=== PATIENT | male | born 1950 | race Caucasian/White ===

== ENCOUNTER 2020-12-27 06:06 | Outpatient (REF) | payer MEDICARE, OTHER, SELFPAY ==
[2020-12-27 11:33] LABS: Hematocrit 41.3 % (42-52); Hemoglobin 12.6 g/dl (14.0-18.0); Mean Corpuscular HGB Conc 30.5 g/dl (31.0-36.0); Mean Corpuscular Hemoglobin 26.9 pg (27.0-33.0); Mean Corpuscular Volume 88.1 fL (80-98); Platelet Count 332 X10*3/uL (160-400); Red Blood Count 4.69 X10*6/uL (4.60-5.80); White Blood Count 6.8 X10*3/uL (4.8-10.8)
[2020-12-27 12:17] LABS: Alanine Aminotransferase 29 U/L (0-40); Albumin Level 4.4 g/dL (3.5-5.0); Alkaline Phosphatase 90 U/L (39-117); Anion Gap 11 (12-20); Aspartate Amino Transferase 35 U/L (5-37); Bilirubin Total 0.6 mg/dL (0.0-1.0); Blood Urea Nitrogen 23 mg/dL (9-16); Calcium 9.4 mg/dL (8.4-10.2); Carbon Dioxide 27 mmol/L (22-29); Chloride 106 mmol/L (96-108); Cholesterol 148 mg/dL; Estimated Glomerular Filt Rate > 60; Glucose Fasting 99 mg/dL (60-99); HDL Cholesterol 62 mg/dL; Iron 36 mcg/dL (45-160); LDL Cholesterol Calculated 68 mg/dl; Percent Iron Saturation 8 % (15-50); Potassium 4.8 mmol/L (3.3-5.1); Sodium 139 mmol/L (135-145); Total Iron Binding Capacity 478 mcg/dL (228-428); Total Protein 7.4 g/dL (6.5-8.0); Triglycerides 93 mg/dL; Unsaturated Iron Binding 442 ug/dL
== END 2020-12-27 06:07 | disposition home or self-care (01) ==
LOC: HO.HMGCLDS 06:06
PROVIDERS: PCP Internal Medicine; Visit Provider Internal Medicine
DX: E78.5 Hyperlipidemia, unspecified (principal); I10 Essential (primary) hypertension; K22.70 Barrett's esophagus without dysplasia
CPT/HCPCS: 36415; 80053; 80061; 83540; 85027

== ENCOUNTER 2021-01-04 11:37 | Outpatient (REF) | payer MEDICARE, OTHER, SELFPAY ==
[2021-01-04 13:49] LABS: Glucose Urine UA NEG (NEG); Leukocyte Esterase Urine NEG (NEG); Nitrite Urine NEG (NEG); Specific Gravity - Urine 1.025 (1.005-1.025); Urine Blood NEG (NEG); Urine Ketones NEG (NEG); Urine Protein NEG (NEG-TRACE)
[2021-01-04 13:55] LABS: Appearance Urine HAZY; Color Urine YELLOW
[2021-01-04 14:08] LABS: Amorphous Sediment Urine 2+ /LPF; Bacteria Urine 1+ /LPF; RBC Urine 0-2 /HPF (0); WBC Urine 0 /HPF (0-4)
[2021-01-04 14:44] LABS: Prostate Specific Antigen Scr 1.54 ng/mL (<0.05-4.0)
== END 2021-01-04 11:38 | disposition home or self-care (01) ==
LOC: HO.HMGCLDS 11:37
PROVIDERS: PCP Internal Medicine; Visit Provider Internal Medicine
DX: Z12.5 Encounter for screening for malignant neoplasm of prostate (principal); N40.0 Benign prostatic hyperplasia without lower urinary tract symptoms
CPT/HCPCS: 36415; 81001; 84153

== ENCOUNTER 2021-09-29 06:41 | Outpatient (REF) | payer MEDICARE, OTHER, SELFPAY ==
[2021-09-29 11:29] LABS: Hematocrit 39.8 % (42.0-52.0); Hemoglobin 12.3 g/dl (14.0-18.0); Mean Corpuscular HGB Conc 30.9 g/dl (31.0-36.0); Mean Corpuscular Hemoglobin 27.3 pg (27.0-33.0); Mean Corpuscular Volume 88.4 fL (80.0-98.0); Mean Platelet Volume 10.3 fL (9.4-12.4); Platelet Count 297 X10*3/uL (160-400); Red Cell Distribution Width 18.1 % (11.0-16.0); White Blood Count 6.1 X10*3/uL (4.8-10.8)
[2021-09-29 12:26] LABS: Alanine Aminotransferase 32 U/L (0-40); Albumin Level 4.4 g/dL (3.5-5.0); Alkaline Phosphatase 74 U/L (39-117); Anion Gap 13 (12-20); Aspartate Amino Transferase 32 U/L (5-37); Blood Urea Nitrogen 29 mg/dL (9-16); Calcium 9.5 mg/dL (8.4-10.2); Carbon Dioxide 26 mmol/L (22-29); Chloride 106 mmol/L (96-108); Cholesterol 144 mg/dL; Estimated Glomerular Filt Rate > 60; Glucose Fasting 101 mg/dL (60-99); HDL Cholesterol 59 mg/dL; Iron 59 mcg/dL (45-160); LDL Cholesterol Calculated 72 mg/dl; Percent Iron Saturation 13 % (15-50); Potassium 4.6 mmol/L (3.3-5.1); Sodium 140 mmol/L (135-145); Total Iron Binding Capacity 466 mcg/dL (228-428); Total Protein 7.4 g/dL (6.5-8.0); Triglycerides 67 mg/dL; Unsaturated Iron Binding 407 ug/dL
== END 2021-09-29 06:42 | disposition home or self-care (01) ==
LOC: HO.HMGCLDS 06:41
PROVIDERS: Visit Provider Internal Medicine
DX: E61.1 Iron deficiency (principal); E78.5 Hyperlipidemia, unspecified; I10 Essential (primary) hypertension; K22.70 Barrett's esophagus without dysplasia
CPT/HCPCS: 36415; 80053; 80061; 83540; 85027

== ENCOUNTER 2022-03-29 06:20 | Outpatient (REF) | payer MEDICARE, OTHER, SELFPAY ==
[2022-03-29 11:25] LABS: MANUAL DIFF FLAG NO
[2022-03-29 11:28] LABS: Basophils Absolute Auto 0.1 X10*3/uL (0.0-0.2); Eosinophils Absolute Auto 0.2 X10*3/uL (0.0-0.4); Eosinophils Percent Auto 3.2 % (0-4); Hematocrit 41.7 % (42.0-52.0); Hemoglobin 13.1 g/dl (14.0-18.0); Imm Gran Abs Auto 0.01 X10*3/uL (0.00-0.03); Imm Gran Pct Auto 0.2 % (0.0-0.4); Lymphocytes Absolute Auto 1.4 X10*3/uL (1.2-4.9); Lymphocytes Percent Auto 27.6 % (20-40); Mean Corpuscular HGB Conc 31.4 g/dl (31.0-36.0); Mean Corpuscular Hemoglobin 27.8 pg (27.0-33.0); Mean Corpuscular Volume 88.5 fL (80.0-98.0); Monocytes Absolute Auto 0.6 X10*3/uL (0.1-1.2); Monocytes Percent Auto 11.7 % (2-11); Neutrophils Absolute Auto 2.8 x10*3/uL (2.0-8.3); Neutrophils Percent Auto 56.3 % (45-73); Platelet Count 294 X10*3/uL (160-400); Red Blood Count 4.71 X10*6/uL (4.60-5.80); Red Cell Distribution Width 17.6 % (11.0-16.0)
[2022-03-29 11:59] LABS: Alanine Aminotransferase 28 U/L (0-40); Albumin Level 4.4 g/dL (3.5-5.0); Alkaline Phosphatase 80 U/L (39-117); Anion Gap 12 (12-20); Aspartate Amino Transferase 30 U/L (5-37); Blood Urea Nitrogen 28 mg/dL (9-16); Calcium 9.3 mg/dL (8.4-10.2); Carbon Dioxide 26 mmol/L (22-29); Chloride 106 mmol/L (96-108); Estimated Glomerular Filt Rate > 60; Glucose Fasting 96 mg/dL (60-99); Iron 57 mcg/dL (45-160); Percent Iron Saturation 13 % (15-50); Potassium 4.2 mmol/L (3.3-5.1); Sodium 140 mmol/L (135-145); Total Iron Binding Capacity 449 mcg/dL (228-428); Total Protein 7.2 g/dL (6.5-8.0); Unsaturated Iron Binding 392 ug/dL
[2022-03-29 12:08] LABS: Prostate Specific Antigen Scr 2.14 ng/mL (<0.05-4.0)
[2022-03-29 13:08] LABS: Folate 15.7 ng/mL (> or = 4.0); Vitamin B12 631 pg/mL (200-900)
== END 2022-03-29 06:21 | disposition home or self-care (01) ==
LOC: HO.HMGCLDS 06:20
PROVIDERS: PCP Internal Medicine; Visit Provider Internal Medicine
DX: Z12.5 Encounter for screening for malignant neoplasm of prostate (principal); E78.5 Hyperlipidemia, unspecified; I10 Essential (primary) hypertension; E61.1 Iron deficiency
CPT/HCPCS: 36415; 80053; 82607; 82746; 83540; 84153; 85025

== ENCOUNTER 2022-07-14 14:22 | Outpatient (REF) | payer MEDICARE, OTHER, SELFPAY ==
[2022-07-14 16:28] LABS: MANUAL DIFF FLAG NO
[2022-07-14 16:32] LABS: Basophils Absolute Auto 0.1 X10*3/uL (0.0-0.2); Basophils Percent Auto 0.8 % (0-2); Eosinophils Absolute Auto 0.1 X10*3/uL (0.0-0.4); Eosinophils Percent Auto 1.2 % (0-4); Hematocrit 26.5 % (42.0-52.0); Hemoglobin 8.1 g/dl (14.0-18.0); Imm Gran Abs Auto 0.02 X10*3/uL (0.00-0.03); Imm Gran Pct Auto 0.3 % (0.0-0.4); Lymphocytes Absolute Auto 1.5 X10*3/uL (1.2-4.9); Lymphocytes Percent Auto 20.3 % (20-40); Mean Corpuscular HGB Conc 30.6 g/dl (31.0-36.0); Mean Corpuscular Hemoglobin 27.5 pg (27.0-33.0); Mean Corpuscular Volume 89.8 fL (80.0-98.0); Mean Platelet Volume 10.2 fL (9.4-12.4); Monocytes Absolute Auto 0.8 X10*3/uL (0.1-1.2); Monocytes Percent Auto 10.8 % (2-11); Neutrophils Percent Auto 66.6 % (45-73); Platelet Count 498 X10*3/uL (160-400); Red Blood Count 2.95 X10*6/uL (4.60-5.80); Red Cell Distribution Width 14.9 % (11.0-16.0); White Blood Count 7.5 X10*3/uL (4.8-10.8)
[2022-07-14 16:47] LABS: Iron 10 mcg/dL (45-160); Percent Iron Saturation 2 % (15-50); Total Iron Binding Capacity 409 mcg/dL (228-428); Unsaturated Iron Binding 399 ug/dL
== END 2022-07-14 14:23 | disposition home or self-care (01) ==
LOC: HO.HMGCLDS 14:22
PROVIDERS: PCP Internal Medicine; Visit Provider Internal Medicine
DX: K22.70 Barrett's esophagus without dysplasia (principal); E61.1 Iron deficiency
CPT/HCPCS: 36415; 83540; 85025

== ENCOUNTER 2022-08-02 08:28 | Outpatient (REF) | payer MEDICARE, OTHER, SELFPAY ==
[2022-08-02 12:00] LABS: Hematocrit 28.9 % (42.0-52.0); Hemoglobin 8.5 g/dl (14.0-18.0); Mean Corpuscular HGB Conc 29.4 g/dl (31.0-36.0); Mean Corpuscular Hemoglobin 25.4 pg (27.0-33.0); Mean Corpuscular Volume 86.5 fL (80.0-98.0); Mean Platelet Volume 10.2 fL (9.4-12.4); Platelet Count 381 X10*3/uL (160-400); Red Blood Count 3.34 X10*6/uL (4.60-5.80); Red Cell Distribution Width 15.9 % (11.0-16.0); White Blood Count 5.7 X10*3/uL (4.8-10.8)
[2022-08-02 12:03] LABS: RET ABN SCTR 1
[2022-08-02 12:04] LABS: Immature Retic Fraction 17.8 % (2.3-13.4); Reticulocytes Absolute 0.099 X10*6/uL (0.026-0.095)
[2022-08-02 12:05] LABS: Reticulocyte Percent 3.1 % (0.5-1.8)
[2022-08-02 12:36] LABS: Iron 103 mcg/dL (45-160); Percent Iron Saturation 24 % (15-50); Total Iron Binding Capacity 423 mcg/dL (228-428); Unsaturated Iron Binding 320 ug/dL
[2022-08-02 12:48] LABS: Atypical Lymph Absolute Manual 0.1 x10*3/uL; Atypical Lymphs Percent Manual 1 % (0-6); Basophils Abs Manual 0.1 X10*3/uL (0.0-0.2); Basophils Percent Manual 2 % (0-2); Eosinophils Absolute Manual 0.1 X10*3/uL (0.0-0.4); Eosinophils Percent Manual 2 % (0-4); Lymphocytes Percent Manual 18 % (20-40); Monocytes Absolute Manual 0.5 X10*3/uL (0.1-1.2); Monocytes Percent Manual 9 % (2-11); Neutrophils Percent Manual 68 % (45-73)
[2022-08-02 12:49] LABS: Band Neutrophils Percent 0 % (3-5); Neutrophils Absolute Manual 3.9 X10*3/uL (2.0-8.3)
[2022-08-02 12:51] LABS: Burr Cells 1+ (0-2) /OIF; Hypochromasia 1+ (5-14) /OIF; Platelet Estimate NORMAL (NORMAL); Platelet Morphology Comment NORMAL; RBC Morphology NOTED; Schistocytes 1+ (0-2) /OIF
[2022-08-02 12:52] LABS: Polychromasia 1+ (0-2) /OIF
[2022-08-02 12:53] LABS: Macrocytosis 1+ (5-14) /OIF
== END 2022-08-02 08:29 | disposition home or self-care (01) ==
LOC: HO.HMGCLDS 08:28
PROVIDERS: PCP Internal Medicine; Visit Provider Internal Medicine
DX: D64.9 Anemia, unspecified (principal)
CPT/HCPCS: 36415; 83540; 85007; 85025; 85027; 85045

== ENCOUNTER 2022-09-05 06:15 | Outpatient (REF) | payer MEDICARE, OTHER, SELFPAY ==
[2022-09-05 11:38] LABS: Baso%MD 1.1 %; Eos%MD 3.5 %; Hematocrit 37.7 % (42.0-52.0); IG%MD 0.2 %; Lymph%MD 25.1 %; Mean Corpuscular HGB Conc 29.2 g/dl (31.0-36.0); Mean Corpuscular Hemoglobin 24.2 pg (27.0-33.0); Mean Corpuscular Volume 82.9 fL (80.0-98.0); Mean Platelet Volume 9.9 fL (9.4-12.4); Mono%MD 11.7 %; Neut%MD 58.4 %; Platelet Count 367 X10*3/uL (160-400); Red Blood Count 4.55 X10*6/uL (4.60-5.80); White Blood Count 5.4 X10*3/uL (4.8-10.8)
[2022-09-05 11:57] LABS: Iron 20 mcg/dL (45-160); Percent Iron Saturation 5 % (15-50); Total Iron Binding Capacity 425 mcg/dL (228-428); Unsaturated Iron Binding 405 ug/dL
[2022-09-05 12:31] LABS: Folate 15.4 ng/mL (> or = 4.0); Vitamin B12 757 pg/mL (200-900)
[2022-09-05 13:21] LABS: Band Neutrophils Percent 0 % (3-5); Eosinophils Absolute Manual 0.3 X10*3/uL (0.0-0.4); Eosinophils Percent Manual 6 % (0-4); Lymphocytes Absolute Manual 0.9 X10*3/uL (1.2-4.9); Lymphocytes Percent Manual 17 % (20-40); Monocytes Absolute Manual 0.6 X10*3/uL (0.1-1.2); Monocytes Percent Manual 12 % (2-11); Neutrophils Absolute Manual 3.5 X10*3/uL (2.0-8.3); Neutrophils Percent Manual 65 % (45-73)
[2022-09-05 13:26] LABS: Acanthocytes 1+ (0-2) /OIF; Hypochromasia 1+ (5-14) /OIF; Ovalocytes 1+ (5-14) /OIF; Platelet Estimate NORMAL (NORMAL); Platelet Morphology Comment NORMAL; RBC Morphology NOTED
[2022-09-08 23:09] LABS: Haptoglobin 166 mg/dL (43-212); IgA 204 mg/dL (70-320); IgG 1390 mg/dL (600-1540); IgM 128 mg/dL (50-300)
== END 2022-09-05 06:16 | disposition home or self-care (01) ==
LOC: HO.HMGCLDS 06:15
PROVIDERS: PCP Internal Medicine; Visit Provider Internal Medicine
DX: D64.9 Anemia, unspecified (principal); E61.1 Iron deficiency
CPT/HCPCS: 36415; 82607; 82746; 82784; 83010; 83540; 85007; 85027; 86334

== ENCOUNTER 2022-09-25 06:54 | Outpatient (REF) | payer MEDICARE, OTHER, SELFPAY ==
[2022-09-25 11:27] LABS: MANUAL DIFF FLAG NO
[2022-09-25 11:34] LABS: Basophils Absolute Auto 0.1 X10*3/uL (0.0-0.2); Eosinophils Absolute Auto 0.1 X10*3/uL (0.0-0.4); Eosinophils Percent Auto 2.4 % (0-4); Hematocrit 39.8 % (42.0-52.0); Hemoglobin 11.7 g/dl (14.0-18.0); Imm Gran Abs Auto 0.02 X10*3/uL (0.00-0.03); Imm Gran Pct Auto 0.3 % (0.0-0.4); Lymphocytes Absolute Auto 1.7 X10*3/uL (1.2-4.9); Lymphocytes Percent Auto 29.2 % (20-40); Mean Corpuscular HGB Conc 29.4 g/dl (31.0-36.0); Mean Corpuscular Hemoglobin 24.7 pg (27.0-33.0); Mean Platelet Volume 10.2 fL (9.4-12.4); Monocytes Absolute Auto 0.8 X10*3/uL (0.1-1.2); Monocytes Percent Auto 13.6 % (2-11); Neutrophils Absolute Auto 3.2 x10*3/uL (2.0-8.3); Neutrophils Percent Auto 53.5 % (45-73); Platelet Count 311 X10*3/uL (160-400); Red Blood Count 4.74 X10*6/uL (4.60-5.80); Red Cell Distribution Width 18.7 % (11.0-16.0)
[2022-09-25 11:58] LABS: Alanine Aminotransferase 30 U/L (0-40); Albumin Level 4.3 g/dL (3.5-5.0); Alkaline Phosphatase 81 U/L (39-117); Anion Gap 11 (12-20); Aspartate Amino Transferase 29 U/L (5-37); Bilirubin Total 0.9 mg/dL (0.0-1.0); Blood Urea Nitrogen 23 mg/dL (9-16); Calcium 9.3 mg/dL (8.4-10.2); Carbon Dioxide 28 mmol/L (22-29); Chloride 107 mmol/L (96-108); Cholesterol 137 mg/dL; Estimated Glomerular Filt Rate > 60; Glucose Fasting 93 mg/dL (60-99); HDL Cholesterol 65 mg/dL; Iron 23 mcg/dL (45-160); LDL Cholesterol Calculated 63 mg/dl; Percent Iron Saturation 6 % (15-50); Potassium 4.7 mmol/L (3.3-5.1); Sodium 141 mmol/L (135-145); Total Iron Binding Capacity 386 mcg/dL (228-428); Total Protein 6.9 g/dL (6.5-8.0); Triglycerides 45 mg/dL; Unsaturated Iron Binding 363 ug/dL
== END 2022-09-25 06:55 | disposition home or self-care (01) ==
LOC: HO.HMGCLDS 06:54
PROVIDERS: PCP Internal Medicine; Visit Provider Internal Medicine
DX: E61.1 Iron deficiency (principal); E78.5 Hyperlipidemia, unspecified; I10 Essential (primary) hypertension; D64.9 Anemia, unspecified
CPT/HCPCS: 36415; 80053; 80061; 83540; 85025

== ENCOUNTER → 2022-10-05 10:44 | Outpatient (REF) | payer MEDICARE, OTHER, SELFPAY ==
--- NOTE | 2022-10-05 10:46 | CA_ITS ---
Transthoracic Echocardiogram Amended Patient (Last, First, Middle): Elijah Gustafson C Gender: Male Date of : 1950 Age: 71 Procedure Date: 10/05/2022 Procedure Type: Transthoracic Echocardiogram Location: OP Height: 177.8 cm Weight: 77.11 kg BSA: 1.95 m2 Heart Rate: 45 bpm BP: 160 / 80 mmHg Auto Hauler: EZEQUIEL Referring MD: Michelle Matias MD Logistics Research Engineer: Maximo Nayak MD Symptoms: R00.1 - Bradycardia, unspecified Study Quality: Adequate ECG Rhythm: Bradycardia Conclusions: - 1. Normal LV systolic function with mild LVH with grade 1 diastolic dysfunction 2. Mildly dilated left atrium 3. Normal cardiac valvular Dopplers 4. Mildly dilated ascending aorta at 4.2 cm 5. No gross pericardial effusion Findings Left Ventricle Normal left ventricular size and systolic function. There is mildly increased left ventricular wall thickness. The visually estimated ejection fraction is between 60-65%. Spectral Doppler is indicative of an impaired relaxation filling pattern. E/E prime ratio is <8, consistent with normal filling pressures. Evidence suggests grade I (mild) diastolic dysfunction. Right Ventricle Normal right ventricular cavity size and systolic function. Atria The left atrium is mildly dilated. There is no evidence of interatrial shunt. The right atrium is normal in size. Aortic Valve The aortic valve structure and function is likely normal. There is no aortic valve stenosis. There is no aortic valve regurgitation. Mitral Valve There is mild anterior and posterior mitral leaflet thickening. There is mild mitral annular calcification. There is trace mitral valve regurgitation. There is no mitral valve stenosis. Pulmonic Valve The pulmonic valve was not well visualized. Tricuspid Valve Likely normal tricuspid valve structure and function. Tricuspid regurgitation envelope is inadequate for calculation of right ventricular systolic pressure. Normal right atrial pressure. Great Vessels The pulmonary artery was not well visualized. There is mild dilatation of the ascending aorta measuring 4.20 cm. Venous The inferior vena cava is normal in size and collapses greater than 50% with inspiration. Pericardium/Pleural There is no evidence of pericardial effusion. Prior Study Comparison No prior study available for comparison. Measurements 2D Linear Measurements IVSd: 1.20 0.6-0.9/0.6-1.0 cm LVIDd: 4.88 3.9-5.3/4.2-5.9 cm LVIDd Index: 2.50 2.4-3.2/2.2-3.1 cm/m2 LVIDs: 3.19 2.0-3.6 cm LVPWd: 1.13 0.7-1.1 cm LA Diam: 4.10 2.7-3.8/3.0-4.0 cm LAIDs Index: 2.10 1.5-2.3 cm/m2 LV Mass: 268.93 67-162/88-224 g LV Mass Index: 137.92 43-95/49-115 g/m2 LVOT Diam: 2.30 3.0+(-)1.3 cm 2D Volumes LA Vol: 36.40 2D Systolic Function EF 4C: 59.30 >55% EF 2C: 63.20 >55% EF BiP: 60.60 >55% Mitral Valve MV Pk E: 0.66 MV PK A: 0.74 MV Decel Time: 297.00 E/A: 0.90 E'Lateral: 8.59 E'Medial: 7.01 E/E' Med: 9.40 E/E' Lat: 7.70 PHT: 87.00 MVA PHT: 2.53 Decel [place]: 2.22 Aortic Valve AoV Pk Moses: 1.40 AoV Mn Moses: 0.99 AoV VTI: 0.31 AoV Pk Grad: 8.00 Aov Mn Grad: 4.00 SCOT Cont.VTI: 3.04 LVOT LVOT Pk Moses: 1.10 LVOT Mn Moses: 0.75 LVOT VTI: 0.23 LVOT Pk Grad: 5.00 LVOT Mn Grad: 3.00 LVOT Diam: 2.30 LVOT Area: 4.15 Diastolic Function MV Pk E: 0.66 MV Pk A: 0.74 E/A: 0.90 E'Medial: 7.01 E/E' Med: 9.40 E' Laterial: 8.59 E/E' Lat: 7.70 Right Ventricle TAPSE (mm): 24.30 TVS' Moses: 13.10 Tricuspid Valve RA Press: 3.00 Great Vessels Aorta Sinus of Valsalva: 3.90 2.0-3.5 cm Ao Asc: 4.20 2.1-3.4 cm Pulmonary Valve PV Pk Moses: 0.90 Peak PV Grad: 3.00 Updated in Other Vendor System with Status of Final Maximo Nayak MD electronically signed on 10/06/2022 8:28:23 AM with status of Final
== END ==
LOC: HO.CARD 10:44
PROVIDERS: PCP Internal Medicine; Visit Provider Internal Medicine
DX: R00.1 Bradycardia, unspecified (principal)
CPT/HCPCS: 93306

== ENCOUNTER → 2022-10-12 10:40 | Outpatient (REF) | payer MEDICARE, OTHER, SELFPAY ==
--- NOTE | 2022-10-12 10:48 | HM_ITS ---
Conclusion: 1. Patient was monitored for total period of 1 day and 22 hours 2. Baseline was normal sinus rhythm with average heart rate of 54 beats per minute 3. Frequent sinus bradycardia, 80% time heart rate below 60 beats per minute 4. No significant pauses noted 5. Total of 1061 PACs accounting for 0.7% of total beats account for occasional PACs. Fifty-nine short runs of SVT, longest lasting 10 beats and the fastest 162 beats per minute 6. One episode of wide complex tachycardia which could represent SVT with aberrancy 7. No patient reported events MTDD
== END ==
LOC: HO.CARD 10:40
PROVIDERS: PCP Internal Medicine; Visit Provider Internal Medicine
DX: R00.1 Bradycardia, unspecified (principal)
CPT/HCPCS: 93225

== ENCOUNTER 2022-11-29 06:08 | Outpatient (REF) | payer MEDICARE, OTHER, SELFPAY ==
[2022-11-29 11:10] LABS: MANUAL DIFF FLAG NO
[2022-11-29 11:53] LABS: Basophils Percent Auto 0.7 % (0-2); Eosinophils Absolute Auto 0.1 X10*3/uL (0.0-0.4); Hematocrit 47.7 % (42.0-52.0); Hemoglobin 14.6 g/dl (14.0-18.0); Imm Gran Abs Auto 0.02 X10*3/uL (0.00-0.03); Imm Gran Pct Auto 0.4 % (0.0-0.4); Lymphocytes Absolute Auto 1.2 X10*3/uL (1.2-4.9); Mean Corpuscular HGB Conc 30.6 g/dl (31.0-36.0); Mean Corpuscular Hemoglobin 26.9 pg (27.0-33.0); Mean Platelet Volume 10.2 fL (9.4-12.4); Monocytes Absolute Auto 0.7 X10*3/uL (0.1-1.2); Monocytes Percent Auto 13.6 % (2-11); Neutrophils Absolute Auto 3.2 x10*3/uL (2.0-8.3); Neutrophils Percent Auto 60.3 % (45-73); Platelet Count 269 X10*3/uL (160-400); Red Blood Count 5.42 X10*6/uL (4.60-5.80); Red Cell Distribution Width 23.5 % (11.0-16.0); White Blood Count 5.4 X10*3/uL (4.8-10.8)
== END 2022-11-29 06:09 | disposition home or self-care (01) ==
LOC: HO.HMGCLDS 06:08
PROVIDERS: PCP Internal Medicine; Visit Provider Internal Medicine
DX: D64.9 Anemia, unspecified (principal)
CPT/HCPCS: 36415; 85025

== ENCOUNTER 2023-05-28 06:47 | Outpatient (REF) | payer MEDICARE, OTHER, SELFPAY ==
[2023-05-28 11:16] LABS: MANUAL DIFF FLAG NO
[2023-05-28 11:38] LABS: Basophils Absolute Auto 0.1 X10*3/uL (0.0-0.2); Basophils Percent Auto 0.9 % (0-2); Eosinophils Absolute Auto 0.2 X10*3/uL (0.0-0.4); Eosinophils Percent Auto 2.8 % (0-4); Hematocrit 50.7 % (42.0-52.0); Hemoglobin 16.8 g/dl (14.0-18.0); Imm Gran Abs Auto 0.02 X10*3/uL (0.00-0.03); Imm Gran Pct Auto 0.4 % (0.0-0.4); Lymphocytes Absolute Auto 1.5 X10*3/uL (1.2-4.9); Lymphocytes Percent Auto 26.9 % (20-40); Mean Corpuscular HGB Conc 33.1 g/dl (31.0-36.0); Mean Corpuscular Volume 99.6 fL (80.0-98.0); Monocytes Absolute Auto 0.6 X10*3/uL (0.1-1.2); Monocytes Percent Auto 10.8 % (2-11); Neutrophils Absolute Auto 3.3 x10*3/uL (2.0-8.3); Neutrophils Percent Auto 58.2 % (45-73); Platelet Count 250 X10*3/uL (160-400); Red Blood Count 5.09 X10*6/uL (4.60-5.80); Red Cell Distribution Width 13.2 % (11.0-16.0); White Blood Count 5.7 X10*3/uL (4.8-10.8)
[2023-05-28 11:54] LABS: Alanine Aminotransferase 60 U/L (0-40); Albumin Level 4.3 g/dL (3.5-5.0); Alkaline Phosphatase 86 U/L (39-117); Anion Gap 12 (12-20); Aspartate Amino Transferase 45 U/L (5-37); Bilirubin Total 1.4 mg/dL (0.0-1.0); Blood Urea Nitrogen 24 mg/dL (9-16); Calcium 9.7 mg/dL (8.4-10.2); Carbon Dioxide 29 mmol/L (22-29); Chloride 104 mmol/L (96-108); Cholesterol 142 mg/dL (<200); Estimated Glomerular Filt Rate > 60; Glucose Fasting 90 mg/dL (60-99); HDL Cholesterol 62 mg/dL (>40); Iron 116 mcg/dL (45-160); LDL Cholesterol Calculated 67 mg/dL (<100); Percent Iron Saturation 36 % (15-50); Potassium 4.2 mmol/L (3.3-5.1); Sodium 141 mmol/L (135-145); Total Iron Binding Capacity 322 mcg/dL (228-428); Total Protein 7.4 g/dL (6.5-8.0); Triglycerides 69 mg/dL (<150); Unsaturated Iron Binding 206 ug/dL
[2023-05-28 12:00] LABS: PSA,Total (Free>4and<10) 1.08 ng/mL (0.00-4.00)
== END 2023-05-28 06:48 | disposition home or self-care (01) ==
LOC: HO.HMGCLDS 06:47
PROVIDERS: PCP Internal Medicine; Visit Provider Internal Medicine
DX: Z00.00 Encounter for general adult medical examination without abnormal findings (principal); D64.9 Anemia, unspecified; E61.1 Iron deficiency; E78.5 Hyperlipidemia, unspecified; N40.0 Benign prostatic hyperplasia without lower urinary tract symptoms; Z12.5 Encounter for screening for malignant neoplasm of prostate
CPT/HCPCS: 36415; 80053; 80061; 83540; 84153; 85025

== ENCOUNTER 2023-06-05 07:45 | Outpatient (AMB) | payer MEDICARE, OTHER, SELFPAY ==
[2023-06-05 08:13] VITALS: BP 128/80; PULSE 58; O2SAT 97; BMI 24.1
--- NOTE | 2023-06-05 08:13 | A.OFFVIS_ITS ---
Intake Vital Signs 06/05/23 08:13 Height 5 ft 10 in Weight 168 lb BMI 24.1 BP 128/80 Blood Pressure Location Lt brachial Position Sitting Pulse 58 Pulse Source Pulse Oximeter Pulse Oximetry (%) 97 Oxygen Delivery Method Room Air Intake Visit Reasons: SWV [id number] Allergies atorvastatin [Lipitor] Allergy (Unknown, Verified 06/05/23 08:16) dizzy ezetimibe [Zetia] Allergy (Unknown, Verified 06/05/23 08:16) does not remember lisinopril Allergy (Unknown, Verified 06/05/23 08:16) hyperkalemia Medication List - Last Reconciled 06/05/23 by Michelle Matias MD ascorbic acid (vitamin C) 500 mg PO DAILY aspirin (Adult Low Dose Aspirin) 81 mg PO DAILY atorvastatin 80 mg PO DAILY famotidine 20 mg PO DAILY ferrous sulfate (Feosol) 325 mg PO DAILY pantoprazole 40 mg PO BID HPI SWV [id number] HPI Details Initiated the conversation about Advanced Directives. Advanced Directives help? patients prepare for current and future decisions about their medical treatment? and place of care. Discussed with patient that it is a process where a patients? current condition and prognosis are reviewed, their wishes for information? regarding their illness are elicited, and likely medical dilemmas are presented? and options discussed. The form can be amended as needed, reviewed yearly and? make changes as needed IPPE/AWV ? year old presents? for her ? Annual? Wellness Visit, initial visit.? Medical / Social History Reviewed? Past Medical History ?Yes? . ? [place]? of Care / Care Team list updated ?Yes . ? Surgical/Hospitalization? History ?Yes . ? Current Medications? (including OTC and supplements) ?Yes . ? Family History ?Yes? . ? Tobacco? Control form ?Yes . ? AUDIT-C (Alcohol use) form? ?Yes . ? Illicit drug use in Social? History ?Yes . ? Current diagnosis of? depression? ?No ? Appropriate PHQ2/PHQ9? completed ?Yes . ? Data entered by ?Medical? [employer] Order Filler and reviewed by provider ? Fall Risk ? Fall? History? Have you had any falls with? injury in the past year? ?No . ? Have you had two or more? falls in the past year? ?No . ? Fall Risk Assessment: ?No? falls in the past year . ? HRA filled out by? the patient, reviewed by Provider and scanned. ? IPPE/AWV ? Balance? [place]? ?Yes . ? Tandem? walk ?Yes . ? Walk and? Turn ?Yes . ? Rise from? sit to stand ?Yes . ?Vision? Corrective? lens ?Yes ? Vision? screen ? Up-to-date, has an appointment [] for vision? screening and glaucoma screening ?Hearing? Whisper? test ?pass .? Initiated the conversation about Advanced Directives. Advanced Directives help? patients prepare for current and future decisions about their medical treatment? and place of care. Discussed with patient that it is a process where a patients? current condition and prognosis are reviewed, their wishes for information? regarding their illness are elicited, and likely medical dilemmas are presented? and options discussed. The form can be amended as needed, reviewed yearly and? make changes as needed Written? Plan?Completed. See Patient? Documents. [facility] Medical History (Updated 06/05/23 @ 10:08 by Michelle Matias MD) Dysplastic nevus Annual physical exam Iron deficiency BPH (benign prostatic hyperplasia) Sanders esophagus Hyperlipemia Surgical History No pertinent past surgical history Family History Father No problems noted. Mother No problems noted. Social History Housing: House Patient Tobacco Use Status: Never used Tobacco e-Cigarette/Vaping Use: Never Used Second Hand Smoke Exposure: Yes service: Yes Current occupational status: retired Current occupational exposures/hazards: No Cognitive needs: No Hearing needs: No Vision needs: Yes Questionnaire Medicare Wellness Checkup [age] What gender do you identify with?: male During the past 4 weeks, how much have you been bothered by emotional problems such as feeling anxious, depressed, irritable, sad or downhearted, and blue?: not at all During the past 4 weeks, has your physical & emotional health limited your social activities with family, friends, neighbors, or groups?: not at all During the past 4 weeks, how much bodily pain have you generally had?: no pain During the past 4 weeks, was someone available to help you if you needed & wanted help?: yes, as much as I wanted During the past 4 weeks, what was the hardest physical activity you could do for at least 2 minutes?: very heavy Can you get to places out of walking distance without help? (For eg., can you travel alone on buses, taxis or drive your car?): Yes Can you go shopping for groceries or clothes without someone's help?: Yes Can you prepare your own meals?: Yes Can you do your housework without help?: Yes Because of any health problems, do you need the help of another person with your personal care needs such as eating, bathing, dressing or getting around the house?: No Can you handle your own money without help?: Yes During the past 4 weeks, how would you rate your health in general?: very good During the past 4 weeks how have things been going for you?: very well; could hardly better Are you having difficulties driving your car?: no Do you always fasten your seat belt when you are in a car?: yes, usually During past 4 weeks, have you been bothered by the following: never: Sexual problems?, Trouble eating well?, Problems using the telephone? and Tiredness or fatigue? and seldom: Falling or dizzy when standing up and Teeth or denture problems? Have you fallen 2 or more times in the past year?: No Are you afraid of falling?: No Are you a smoker?: no During the past 4 weeks, how many drinks of wine, beer, or other alcoholic beverages did you have?: 1 drink or less per week Do you exercise for about 20 minutes 3 or more times a week?: yes, most of the time Have you been given information to help with the following?: yes: Keeping track of your medications? and no: Hazards in your house that might hurt you? How often do you have trouble taking medicines the way you have been told to take them?: I always take medicine as prescribed How confident are you that you can control & manage most of your health problems?: very confident What is your race?: White Activity of Daily Living Bathing - sponge bath, tub bath or shower: receives no assistance (gets in/out by self, if usual bathing means Dressing - getting clothes from closets & drawers, including inner/outer garments & fasteners.: gets clothes & gets completely dressed without help Toileting - going to the 'toilet room' for urine/bowel elimination & cleaning self/arranging clothes: goes to toilet room, cleans self, arranges clothes without help Transfer: moves in & out of bed and chair without help (may use support object) Continence: controls urination/bowel movements completely by self Feeding: feeds self without help Total Score: 0 Information obtained from: patient Using telephone: independent Traveling: independent Shopping: independent Preparing meals: independent Housework: independent Taking medicine: independent Managing money: independent PHQ-9 Over the last 2 weeks, how often have you been bothered by any of the following problems? 1. Little interest or pleasure in doing things: not at all 2. Feeling down, depressed, or hopeless: not at all 3. Trouble falling or staying asleep, or sleeping too much: not at all 4. Feeling tired or having little energy: not at all 5. Poor appetite or overeating: not at all 6. Feeling bad about yourself - or that you are a failure or have let yourself or your family down: not at all 7. Trouble concentrating on things, such as reading the newspaper or watching television: not at all 8. Moving or speaking so slowly that other people could have noticed. Or the opposite - being so fidgety or restless that you have been moving around a lot more than usual: not at all 9. Thoughts that you would be better off or of hurting yourself in some way: not at all Total score: 0 Depression Screening Interpretation: Negative Depression Screening Done: Yes 63771 - PHQ-9 Billing: Yes Source: Developed by Drs. Geremias Ramirez, Amber Quiles, Shreyas Ricci and colleagues, with an educational janny from [employer]. Review of Systems Const All systems reviewed & are unremarkable except as noted in HPI and below Reports no additional complaints Eyes Reports no additional complaints ENT Reports no additional complaints Card Reports no additional complaints Resp Reports no additional complaints GI Reports no additional complaints Reports no additional complaints Physical Exam Vital Signs: Last Vital Signs Pulse 58 06/05/23 08:13 BP 128/80 06/05/23 08:13 Pulse Ox 97 06/05/23 08:13 Oxygen Delivery Method Room Air 06/05/23 08:13 BMI result Body Mass Index 24.1 Const General: no acute distress HEENT Head: Yes normal to inspection Ears: hearing grossly normal bilaterally Eyes General: appearance normal, both eyes and all related structures Neck Neck: Yes no lymphadenopathy and Yes supple Resp Effort & Inspection: normal respiratory effort Auscultation: clear to auscultation bilaterally Cardio Rhythm: regular rhythm Heart sounds: S1 normal heart sound present GI Inspection: Yes normal to inspection Palpation (GI): Soft to palpation Percussion: Yes normal to percussion Auscultation: normal bowel sounds Extrem General: Yes no clubbing, cyanosis or edema Assessment & Plan Assessment & Plan (1) Elevated LFTs: Code(s): R79.89 - Other specified abnormal findings of blood chemistry Plan: Patient will have a repeat LFTs this week. he was advised to avoid alcohol. [id number] NSAIDs and Tylenol. If LFTs are still elevated liver ultrasound will be obtained. 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 - Other specified abnormal findings of blood chemistry Hepatitis B,C Profile Today R7. - Other specified abnormal findings of blood chemistry Comprehensive Mobile. Panel Fast 6 Months D64.9 - Anemia, unspecified, E78.5 - Hyperlipidemia, unspecified, R79.89 - Other specified abnormal findings of blood chemistry Complete Blood Count Auto Diff 6 Months D64.9 - Anemia, unspecified, E78.5 - Hyperlipidemia, unspecified, R79.89 - Other specified abnormal findings of blood chemistry Lipid Panel 6 Months D64.9 - Anemia, unspecified, E78.5 - Hyperlipidemia, unspecified, R79.89 - Other specified abnormal findings of blood chemistry IRON PROFILE 6 Months D64.9 - Anemia, unspecified, E78.5 - Hyperlipidemia, unspecified, R79.89 - Other specified abnormal findings of blood chemistry Vitamin B12 6 Months D64.9 - Anemia, unspecified, E78.5 - Hyperlipidemia, unspecified, R79. - Other specified abnormal findings of blood chemistry Quality Reporting (2019) Depression/Bipolar (159/160/161/177) PHQ-9: Total score: 0 Coding Level of Care Code Medicare Subsequent (G0439) Diagnoses Elevated LFTs R79.89 Annual physical exam Z00.00 Anemia D64.9 Iron deficiency E61.1 Sanders esophagus K22.70 Hyperlipemia E78.5 CPT Codes Advance Care Planning - Time spent: 1-15 minutes, not on file ([id number]) Advance Care Planning Advance Care Planning discussion: Exists, not on file Forms completed: Health Care Proxy Time spent: 1-15 minutes, not on file Did not discuss due to Cultural/Spiritual beliefs: Yes
== END 2023-06-05 08:58 | disposition home or self-care (01) ==
PROVIDERS: PCP Internal Medicine; Visit Provider Internal Medicine
DX: R79.89 Other specified abnormal findings of blood chemistry (principal); Z00.00 Encounter for general adult medical examination without abnormal findings; D64.9 Anemia, unspecified; E61.1 Iron deficiency; K22.70 Barrett's esophagus without dysplasia; E78.5 Hyperlipidemia, unspecified
CPT/HCPCS: 1124F; G0439

== ENCOUNTER 2023-06-07 07:02 | Outpatient (REF) | payer MEDICARE, OTHER, SELFPAY ==
[2023-06-07 12:04] LABS: Alanine Aminotransferase 76 U/L (0-40); Albumin Level 4.2 g/dL (3.5-5.0); Alkaline Phosphatase 103 U/L (39-117); Aspartate Amino Transferase 52 U/L (5-37); Bilirubin Direct 0.5 mg/dL (0.0-0.5); Bilirubin Total 1.3 mg/dL (0.0-1.0); Total Protein 7.3 g/dL (6.5-8.0)
[2023-06-07 12:05] LABS: HBS Num1 0.45 mIU/mL (0-7.99); HBc Num1 0.12 S/CO (0.00-0.79); HBsAGNum1 0.29 S/CO (0.00-0.99); Hepatitis B Core Antibody Nonreactive (Nonreactive); Hepatitis B Surface Antigen Negative (Negative); ~HepC Num1 0.69 S/CO (0.00-0.79); ~Hepatitis B Surface Antibody NONREACTIVE (Nonreactive); ~Hepatitis C Antibody Nonreactive (Nonreactive)
== END 2023-06-07 07:03 | disposition home or self-care (01) ==
LOC: HO.HMGCLDS 07:02
PROVIDERS: PCP Internal Medicine; Visit Provider Internal Medicine
DX: R79.89 Other specified abnormal findings of blood chemistry (principal)
CPT/HCPCS: 36415; 80076; 86704; 86706; 86803; 87340

== ENCOUNTER 2023-09-19 13:25 | Outpatient (AMB) | payer MEDICARE, OTHER, SELFPAY ==
--- NOTE | 2023-09-19 14:07 | MHC.PC.OV ---
Vital Signs 09/19/23 14:08 Height 5 ft 10 in Weight 175 lb 6 oz BMI 25.2 BP 128/71 Blood Pressure Location Lt brachial Position Sitting Pulse 56 Pulse Source Pulse Oximeter Pulse Oximetry (%) 96 Oxygen Delivery Method Room Air Intake Visit Reasons: Hospital follow up Information Interpreted: non-clinical & clinical Accompanied by: Self / Same As Patient Allergies atorvastatin [Lipitor] Allergy (Unknown, Verified 09/19/23 14:12) dizzy ezetimibe [Zetia] Allergy (Unknown, Verified 09/19/23 14:12) does not remember lisinopril Allergy (Unknown, Verified 09/19/23 14:12) hyperkalemia Medication List - Last Reconciled 09/19/23 by Michelle Matias MD ascorbic acid (vitamin C) 500 mg PO DAILY aspirin (Adult Low Dose Aspirin) 81 mg PO DAILY atorvastatin 80 mg PO DAILY ferrous sulfate (Feosol) 325 mg PO DAILY pantoprazole 40 mg PO BID Tobacco use date assessed: 09/19/23 Fall risk assessment: 2 + Falls in past year Last assessed Fall Risk: 09/19/23 Dental Screening Dental Screen Date: 09/19/23 Did you have a dental visit in the last 12 months?: Yes Did you have a dental problem in the last 6 months where you did not have access to dental care?: No Was dental information given to patient?: Patient has dentist HPI Hospital follow up HPI Details Patient presents for the follow-up of hospitalization at [facility] for vasovagal syncope. Workup was negative patient was monitored for 24 hours without significant heart arrhythmias. Patient denies any recurrent symptoms since he was discharged home. Patient has been physically active working out daily and walking 4 miles. He denies exercise induced chest pain shortness for breath palpitations weakness or numbness in extremities. [facility] Medical History Dysplastic nevus Annual physical exam Iron deficiency BPH (benign prostatic hyperplasia) Sanders esophagus Hyperlipemia Surgical History No pertinent past surgical history Family History Father No problems noted. Mother No problems noted. Social History Housing: House Patient Tobacco Use Status: Never used Tobacco e-Cigarette/Vaping Use: Never Used Second Hand Smoke Exposure: Yes service: Yes Current occupational status: retired Current occupational exposures/hazards: No Cognitive needs: No Hearing needs: No Vision needs: Yes Questionnaire PHQ-9 Over the last 2 weeks, how often have you been bothered by any of the following problems? 1. Little interest or pleasure in doing things: not at all 2. Feeling down, depressed, or hopeless: not at all 3. Trouble falling or staying asleep, or sleeping too much: not at all 4. Feeling tired or having little energy: not at all 5. Poor appetite or overeating: not at all 6. Feeling bad about yourself - or that you are a failure or have let yourself or your family down: not at all 7. Trouble concentrating on things, such as reading the newspaper or watching television: not at all 8. Moving or speaking so slowly that other people could have noticed. Or the opposite - being so fidgety or restless that you have been moving around a lot more than usual: not at all 9. Thoughts that you would be better off or of hurting yourself in some way: not at all Total score: 0 Depression Screening Interpretation: Negative Depression Screening Done: Yes 10766 - PHQ-9 Billing: Yes Source: Developed by Drs. Geremias Ramirez, Amber Quiles, Shreyas Ricci and colleagues, with an educational janny from [email or web address]. Thrive Questionnaire Date Thrive assessed: 09/19/23 I am a: Patient What is your living situation today?: I have a steady place to live Within the past 12 months, did the food you bought not last and you didn't have the money to get more?: Never true Within the past 12 months, did you worry whether your food would run out before you got money to buy more?: Never true THRIVE Score: 0 AUDIT C Alcohol Use Questionnaire (AUDIT-C) 1. How often do you have a drink containing alcohol?: Monthly or less 2. How many drinks containing alcohol do you have on a typical day when you are drinking?: 1 or 2 3. How often do you have six or more drinks on one occasion?: Never Total Score: 1 FRANCO-7 AMB Questionnaire FRANCO-7 Date FRANCO - 7 assessed: 09/19/23 Feeling nervous, anxious, or on edge: 0 = Not at all Not being able to stop or control worryin = Not at all Worrying too much about different things: 0 = Not at all Trouble relaxin = Not at all Being so restless that it is hard to sit still: 0 = Not at all Becoming easily annoyed or irritable: 0 = Not at all Feeling afraid as if something awful might happen: 0 = Not at all Total FRANCO-7 score (0-4 normal; 5-9 mild; 10-14 moderate; 15-21 severe): 0 Source: Developed by Drs. Geremias Ramirez, Amber Quiles, Shreyas Ricci and colleagues, with an educational janny from [email or web address]. Review of Systems Const All systems reviewed & are unremarkable except as noted in HPI and below Reports no additional complaints Eyes Reports no additional complaints ENT Reports no additional complaints Card Reports no additional complaints Resp Reports no additional complaints GI Reports no additional complaints Reports no additional complaints Physical exam (Primary Care) Vital Signs: Last Vital Signs Pulse 56 09/19/23 14:08 BP 128/71 09/19/23 14:08 Pulse Ox 96 09/19/23 14:08 Oxygen Delivery Method Room Air 09/19/23 14:08 BMI result Body Mass Index 25.2 Tobacco/Smoking Status: Tobacco use Status Tobacco use date assessed 09/19/23 09/19/23 14:18 Patient Tobacco Use Status Never used Tobacco 09/19/23 14:18 e-Cigarette/Vaping Use Never Used 09/19/23 14:18 PHQ-9: PHQ-9 Score PHQ-9: Total score 0 09/19/23 14:18 Depression Screening Interpretation: Negative Thrive Assessment: Date of Thrive Assessment Date Thrive assessed 09/19/23 09/19/23 14:18 Const General: no acute distress HENMT Face and sinus: Yes normal facial exam Throat: Yes posterior oropharynx normal Resp Effort & Inspection: normal respiratory effort Auscultation: clear to auscultation bilaterally Cardio Rhythm: regular rhythm Heart sounds: S1 normal heart sound present and S2 normal heart sound present GI Inspection: Yes normal to inspection Palpation (GI): Soft to palpation Percussion: Yes normal to percussion Auscultation: normal bowel sounds Assessment and Plan Assessment & Plan (1) Annual physical exam: Code(s): Z00.00 - Encounter for general adult medical examination without abnormal findings (2) Syncope: Code(s): R55 - Syncope and collapse Plan: Obtain surveillance Holter echocardiogram and Doppler of carotid arteries. Continue 81 mg of aspirin and Lipitor Orders: Orders ECG 7 day holter monitor Today R00.1 - Bradycardia, unspecified, Z00.00 - Encounter for general adult medical examination without abnormal findings CA echo transthoracic complete Today R55 - Syncope and collapse US carotid duplex BI Today R55 - Syncope and collapse Coding Level of Care Code Est Pt Level 3 (80282) Diagnoses Annual physical exam Z00.00 Syncope R55
[2023-09-19 14:08] VITALS: BP 128/71; PULSE 56; O2SAT 96; BMI 25.2
== END 2023-09-19 14:44 | disposition home or self-care (01) ==
PROVIDERS: PCP Internal Medicine; Visit Provider Internal Medicine
DX: R55 Syncope and collapse (principal)
CPT/HCPCS: 99213

== ENCOUNTER 2023-09-19 14:43 | Outpatient (REF) | payer MEDICARE, OTHER, SELFPAY ==
--- NOTE | ~2023-09-19 | XR_ITS ---
EXAMINATION: XR CHEST CLINICAL INFORMATION: Bradycardia COMPARISON: None available. TECHNIQUE: 2 views of the chest were obtained. FINDINGS: No significant abnormality is noted involving the heart, lungs, mediastinum, bony thorax or soft tissues. XR/XR chest 2V IMPRESSION: Unremarkable examination.
== END 2023-09-19 14:44 | disposition home or self-care (01) ==
LOC: HO.HMGCX 14:43
PROVIDERS: PCP Internal Medicine; Visit Provider Internal Medicine
DX: R00.1 Bradycardia, unspecified (principal)
CPT/HCPCS: 71046

== ENCOUNTER 2023-10-03 08:03 | Outpatient (REF) | payer MEDICARE, OTHER, SELFPAY ==
--- NOTE | ~2023-10-03 | US_ITS ---
EXAMINATION: US EXTRACRANIAL CAROTID DUPLEX, BILATERAL CLINICAL INFORMATION: Syncope COMPARISON: None available. TECHNIQUE: Real-time ultrasound and Doppler techniques (integrating B-mode 2-D vascular images, Doppler spectral analysis and color-flow Doppler imaging) were utilized to interrogate the extracranial carotid arteries, the vertebral arteries and proximal subclavian arteries bilaterally. The degree of stenosis is determined by criteria similar to NASCET. FINDINGS: Right Side: 1. There is mild atherosclerotic plaque seen in the bifurcation/proximal ICA region. 2. The common carotid artery PSV proximally is 132 cm/s and distally 75 cm/s. 3. The proximal internal carotid artery velocities are 67 cm/s systolic and 19 cm/s diastolic. 4. The proximal external carotid artery PSV is 46 cm/s. 5. The vertebral artery shows antegrade flow. 6. The subclavian artery waveforms are normal. Left Side: 1. There is mild atherosclerotic plaque seen in the bifurcation/proximal ICA region. 2. The common carotid artery PSV proximally is 123 cm/s and distally 77 cm/s. 3. The proximal internal carotid artery velocities are 65 cm/s systolic and 18 cm/s diastolic. 4. The proximal external carotid artery PSV is 69 cm/s. 5. The vertebral artery shows antegrade flow. 6. The subclavian artery waveforms are normal. US/US carotid duplex BI IMPRESSION: 1. RIGHT: Minimal, non-hemodynamically significant stenosis of the proximal right internal carotid artery corresponding to a 0-49% stenosis by velocity criteria. 2. LEFT: Minimal, non-hemodynamically significant stenosis of the proximal left internal carotid artery corresponding to a 0-49% stenosis by velocity criteria.
== END 2023-10-03 08:04 | disposition home or self-care (01) ==
LOC: HO.HMGCX 08:03
PROVIDERS: PCP Internal Medicine; Visit Provider Internal Medicine
DX: R55 Syncope and collapse (principal)
CPT/HCPCS: 93880

== ENCOUNTER → 2023-10-11 07:47 | Outpatient (REF) | payer MEDICARE, OTHER, SELFPAY ==
--- NOTE | 2023-10-11 07:52 | HM_ITS ---
* Total monitoring time 7 days. * Underlying rhythm is sinus with an average rate of 57/Min. Range 40 to 101/Min. About 68% of the time, rate < 60/Min. * Rare supraventricular ectopy with a burden of 0.6%. * Rare ventricular ectopy with a burden of 0.07 %. * One run of 23 beats, monomorphic NSVT. * No significant pauses or AV blocks. * No patient markers or symptoms mentioned in diary. MTDD
--- NOTE | 2023-10-11 07:52 | CA_ITS ---
Transthoracic Echocardiogram Patient (Last, First, Middle): Elijah Gustafson C Gender: Male Date of : 1950 Age: 72 Procedure Date: 10/11/2023 Procedure Type: Transthoracic Echocardiogram Location: OP Height: 177.8 cm Weight: 77.57 kg BSA: 1.95 m2 Heart Rate: 54 bpm BP: 160 / 80 mmHg Geospatial Developer: EZEQUIEL Referring MD: Michelle Matias MD Symptoms: R55 - Syncope and collapse Study Quality: Fair ECG Rhythm: Bradycardia Conclusions: - Normal left ventricular size and systolic function. There is moderately increased left ventricular wall thickness. The visually estimated ejection fraction is between 65-70%. - E/E prime ratio is between 8 and 15 consistent with indeterminate filling pressures. - Moderately elevated right atrial pressure. There is no evidence of pulmonary hypertension. - There is mild dilatation of the sinuses of Valsalva measuring 4.00 cm and mild dilatation of the ascending aorta measuring 4.40 cm. Findings Left Ventricle Normal left ventricular size and systolic function. There is moderately increased left ventricular wall thickness. The visually estimated ejection fraction is between 65-70%. There is no evidence of regional wall motion abnormalities. Abnormal diastolic function is noted. Spectral Doppler is indicative of a pseudonormal filling pattern. E/E prime ratio is between 8 and 15 consistent with indeterminate filling pressures. Right Ventricle Normal right ventricular cavity size and systolic function. Atria The left atrium is mildly dilated. The right atrium is normal in size. Aortic Valve Normal aortic valve structure and function. There is no aortic valve stenosis. There is no aortic valve regurgitation. Mitral Valve The mitral valve appears normal. There is no mitral valve regurgitation. There is no mitral valve stenosis. Pulmonic Valve The pulmonic valve is likely normal. There is trace pulmonic valve regurgitation. Tricuspid Valve Normal tricuspid valve structure. There is trace tricuspid valve regurgitation. Moderately elevated right atrial pressure. There is no evidence of pulmonary hypertension. Great Vessels There is mild dilatation of the sinuses of Valsalva measuring 4.00 cm and mild dilatation of the ascending aorta measuring 4.40 cm. The visualized portions of the pulmonary artery and branches are normal. Venous The inferior vena cava is dilated and collapses greater than 50% with inspiration. Pericardium/Pleural There is no evidence of pericardial effusion. Prior Study Comparison Changes noted compared to prior study dated: 10/05/2022. Ascending aorta 4.4 cm (previously 4.2 cm). Measurements 2D Linear Measurements IVSd: 1.41 0.6-0.9/0.6-1.0 cm LVIDd: 4.37 3.9-5.3/4.2-5.9 cm LVIDd Index: 2.24 2.4-3.2/2.2-3.1 cm/m2 LVIDs: 2.55 2.0-3.6 cm LVPWd: 1.46 0.7-1.1 cm LA Diam: 3.90 2.7-3.8/3.0-4.0 cm LAIDs Index: 2.00 1.5-2.3 cm/m2 LV Mass: 307.89 67-162/88-224 g LV Mass Index: 157.89 43-95/49-115 g/m2 LVOT Diam: 2.00 3.0+(-)1.3 cm 2D Systolic Function EF 4C: 68.80 >55% EF 2C: 77.40 >55% EF BiP: 74.20 >55% Mitral Valve MV Pk E: 0.80 MV PK A: 0.79 MV Decel Time: 267.00 E/A: 1.00 E'Lateral: 8.49 E'Medial: 7.40 E/E' Med: 10.80 E/E' Lat: 9.40 PHT: 78.00 MVA PHT: 2.82 Decel [place]: 2.99 Aortic Valve AoV Pk Moses: 1.29 AoV Mn Moses: 0.92 AoV VTI: 0.29 AoV Pk Grad: 7.00 Aov Mn Grad: 4.00 SCOT Cont.VTI: 2.41 LVOT LVOT Pk Moses: 1.08 LVOT Mn Moses: 0.74 LVOT VTI: 0.23 LVOT Pk Grad: 5.00 LVOT Mn Grad: 3.00 LVOT Diam: 2.00 LVOT Area: 3.14 Diastolic Function MV Pk E: 0.80 MV Pk A: 0.79 E/A: 1.00 E'Medial: 7.40 E/E' Med: 10.80 E' Laterial: 8.49 E/E' Lat: 9.40 Right Ventricle TAPSE (mm): 20.30 TVS' Moses: 11.50 Tricuspid Valve TR Pk Moses: 2.28 TR Pk Grad: 21.00 RA Press: 8.00 RVSP: 29.00 Great Vessels Aorta Sinus of Valsalva: 4.00 2.0-3.5 cm Ao Asc: 4.40 2.1-3.4 cm Ao Arch: 3.30 Pulmonary Valve PV Pk Moses: 1.02 Peak PV Grad: 4.00 Updated in Other Vendor System with Status of Final Shaq Hudson MD electronically signed on 10/12/2023 8:49:23 PM with status of Final
== END ==
LOC: HO.CARD 07:47
PROVIDERS: PCP Internal Medicine; Visit Provider Internal Medicine
DX: R00.1 Bradycardia, unspecified (principal); R55 Syncope and collapse
CPT/HCPCS: 93242; 93306

== ENCOUNTER → 2023-10-11 07:52 | Outpatient (BNV) | payer MEDICARE, OTHER, SELFPAY | PROVIDERS: PCP Internal Medicine; Visit Provider Internal Medicine Cardiovascular Disease | DX: R00.1 Bradycardia, unspecified (principal) | CPT/HCPCS: 93244; 93306 ==

== ENCOUNTER 2023-11-28 06:49 | Outpatient (REF) | payer MEDICARE, OTHER, SELFPAY ==
[2023-11-28 10:42] LABS: MANUAL DIFF FLAG NO
[2023-11-28 10:48] LABS: Basophils Absolute Auto 0.1 X10*3/uL (0.0-0.2); Eosinophils Absolute Auto 0.1 X10*3/uL (0.0-0.4); Eosinophils Percent Auto 1.9 % (0-4); Imm Gran Abs Auto 0.02 X10*3/uL (0.00-0.03); Imm Gran Pct Auto 0.4 % (0.0-0.4); Lymphocytes Absolute Auto 1.6 X10*3/uL (1.2-4.9); Lymphocytes Percent Auto 31.1 % (20-40); Mean Corpuscular HGB Conc 33.3 g/dl (31.0-36.0); Mean Corpuscular Hemoglobin 32.9 pg (27.0-33.0); Mean Corpuscular Volume 98.8 fL (80.0-98.0); Mean Platelet Volume 10.2 fL (9.4-12.4); Monocytes Absolute Auto 0.7 X10*3/uL (0.1-1.2); Monocytes Percent Auto 13.1 % (2-11); Neutrophils Absolute Auto 2.7 x10*3/uL (2.0-8.3); Neutrophils Percent Auto 52.5 % (45-73); Platelet Count 233 X10*3/uL (160-400); Red Blood Count 4.86 X10*6/uL (4.60-5.80); Red Cell Distribution Width 13.5 % (11.0-16.0); White Blood Count 5.2 X10*3/uL (4.8-10.8)
[2023-11-28 11:23] LABS: Alanine Aminotransferase 59 U/L (0-40); Albumin Level 4.2 g/dL (3.5-5.0); Alkaline Phosphatase 93 U/L (39-117); Anion Gap 9 (12-20); Aspartate Amino Transferase 52 U/L (5-37); Bilirubin Total 1.2 mg/dL (0.0-1.0); Blood Urea Nitrogen 22 mg/dL (9-16); Calcium 9.3 mg/dL (8.4-10.2); Carbon Dioxide 28 mmol/L (22-29); Chloride 107 mmol/L (96-108); Cholesterol 137 mg/dL (<200); Estimated Glomerular Filt Rate > 60; Glucose Fasting 87 mg/dL (60-99); HDL Cholesterol 64 mg/dL (>40); Iron 122 mcg/dL (45-160); LDL Cholesterol Calculated 63 mg/dL (<100); Percent Iron Saturation 38 % (15-50); Potassium 3.9 mmol/L (3.3-5.1); Sodium 140 mmol/L (135-145); Total Iron Binding Capacity 319 mcg/dL (228-428); Total Protein 7.1 g/dL (6.5-8.0); Triglycerides 54 mg/dL (<150); Unsaturated Iron Binding 197 ug/dL
[2023-11-28 11:35] LABS: Vitamin B12 807 pg/mL (200-900)
== END 2023-11-28 06:50 | disposition home or self-care (01) ==
LOC: HO.HMGCLDS 06:49
PROVIDERS: PCP Internal Medicine; Visit Provider Internal Medicine
DX: R79.89 Other specified abnormal findings of blood chemistry (principal); D64.9 Anemia, unspecified; E78.5 Hyperlipidemia, unspecified
CPT/HCPCS: 36415; 80053; 80061; 82607; 83540; 85025

== ENCOUNTER 2023-12-05 09:55 | Outpatient (AMB) | payer MEDICARE, OTHER, SELFPAY ==
--- NOTE | 2023-12-05 09:57 | MHC.PC.OV ---
Vital Signs 12/05/23 09:58 Height 5 ft 10 in Weight 174 lb BMI 25.0 BP 125/66 Blood Pressure Location Rt brachial Position Sitting Pulse 57 Pulse Source Pulse Oximeter Pulse Oximetry (%) 97 Oxygen Delivery Method Room Air Intake Visit Reasons: 6 month follow up Intake Note: Pt is here today for 6 months follow up visit on labs. Allergies atorvastatin [Lipitor] Allergy (Unknown, Verified 12/05/23 10:01) dizzy ezetimibe [Zetia] Allergy (Unknown, Verified 12/05/23 10:01) does not remember lisinopril Allergy (Unknown, Verified 12/05/23 10:01) hyperkalemia Medication List - Last Reconciled 12/05/23 by Michelle Matias MD ascorbic acid (vitamin C) 500 mg PO DAILY aspirin (Adult Low Dose Aspirin) 81 mg PO DAILY atorvastatin 80 mg PO DAILY ferrous sulfate (Feosol) 325 mg PO DAILY pantoprazole 40 mg PO BID Tobacco use date assessed: 12/05/23 Dental Screening Dental Screen Date: 09/19/23 HPI 6 month follow up HPI Details Patient presents for the follow-up of hyperlipidemia chronic GERD with Sanders's esophagus and sinus bradycardia. Patient had echo and Holter without significant abnormalities. He exercises 5 times a week walking 5 miles a day. Patient denies chest pain shortness for breath palpitations, any recurrent near syncope episodes. PENDING SALE TO [facility] Medical History Dysplastic nevus Annual physical exam Iron deficiency BPH (benign prostatic hyperplasia) Sanders esophagus Hyperlipemia Surgical History No pertinent past surgical history Family History Father No problems noted. Mother No problems noted. Social History Housing: House Patient Tobacco Use Status: Never used Tobacco e-Cigarette/Vaping Use: Never Used Second Hand Smoke Exposure: Yes service: Yes Current occupational status: retired Current occupational exposures/hazards: No Cognitive needs: No Hearing needs: No Vision needs: Yes Questionnaire Thrive Questionnaire Date Thrive assessed: 09/19/23 FRANCO-7 AMB Questionnaire FRANCO-7 Date FRANCO - 7 assessed: 09/19/23 Source: Developed by Drs. Geremias Ramirez, Amber Quiles, Shreyas Ricci and colleagues, with an educational janny from [employer]. Review of Systems Const All systems reviewed & are unremarkable except as noted in HPI and below ENT Reports no additional complaints Card Reports no additional complaints Resp Reports no additional complaints GI Reports no additional complaints Reports no additional complaints Musc Reports no additional complaints Physical exam (Primary Care) Vital Signs: Last Vital Signs Pulse 57 12/05/23 09:58 BP 138/66 12/05/23 09:58 Pulse Ox 97 12/05/23 09:58 Oxygen Delivery Method Room Air 12/05/23 09:58 BMI result Body Mass Index 25.0 Tobacco/Smoking Status: Tobacco use Status Tobacco use date assessed 12/05/23 12/05/23 10:03 Patient Tobacco Use Status Never used Tobacco 12/05/23 10:03 e-Cigarette/Vaping Use Never Used 12/05/23 09:58 Thrive Assessment: Date of Thrive Assessment Date Thrive assessed 09/19/23 12/05/23 09:58 Const General: no acute distress HENMT Head: Yes normal to inspection Neck Neck: Yes supple Resp Effort & Inspection: normal respiratory effort Auscultation: clear to auscultation bilaterally Cardio Rhythm: regular rhythm Heart sounds: S1 normal heart sound present and S2 normal heart sound present Assessment and Plan Assessment & Plan (1) Sanders esophagus: Comment: EGD 06/2020 txd radio ablation f/u EGD in 6 mths, EGD 01/2022, , repeat in Jun Code(s): K22.70 - Sanders's esophagus without dysplasia Plan: Continue PPI follow-up with [facility] Dr. Avalos (2) Bradycardia: Comment: nl Echo and Holter 10/23 Code(s): R00.1 - Bradycardia, unspecified Plan: Stable (3) Elevated LFTs: Code(s): R79.89 - Other specified abnormal findings of blood chemistry Plan: Avoid NSAIDs alcohol and check liver ultrasound follow-up in 6 months Orders: Orders Comprehensive Collins. Panel Fast 6 Months K2 - Sanders's esophagus without dysplasia, R00.1 - Bradycardia, unspecified, R79.89 - Other specified abnormal findings of blood chemistry Complete Blood Count Auto Diff 6 Months K22.70 - Sanders's esophagus without dysplasia, R00.1 - Bradycardia, unspecified, R79.89 - Other specified abnormal findings of blood chemistry Hepatitis B,C Profile 6 Months K22.70 - Sanders's esophagus without dysplasia, R00.1 - Bradycardia, unspecified, R79.89 - Other specified abnormal findings of blood chemistry US abdomen limited Today R79.89 - Other specified abnormal findings of blood chemistry Lipid Panel 6 Months K22.70 - Sanders's esophagus without dysplasia, R00.1 - Bradycardia, unspecified, R79.89 - Other specified abnormal findings of blood chemistry Coding Level of Care Code Est Pt Level 4 (06704) Diagnoses Sanders esophagus K22.70 Bradycardia R00.1 Elevated LFTs R79.89
[2023-12-05 09:58] VITALS: BP 125/66; PULSE 57; O2SAT 97; BMI 25.0
== END 2023-12-05 11:06 | disposition home or self-care (01) ==
PROVIDERS: PCP Internal Medicine; Visit Provider Internal Medicine
DX: K22.70 Barrett's esophagus without dysplasia (principal); R00.1 Bradycardia, unspecified; R79.89 Other specified abnormal findings of blood chemistry
CPT/HCPCS: 99214

== ENCOUNTER 2023-12-10 08:38 | Outpatient (REF) | payer MEDICARE, OTHER, SELFPAY ==
--- NOTE | ~2023-12-10 | US_ITS ---
EXAMINATION: US ABDOMEN LIMITED CLINICAL INFORMATION: Elevated LFTs. COMPARISON: None available. TECHNIQUE: Real-time imaging of the right upper quadrant abdominal viscera. FINDINGS: PANCREAS: The pancreas is obscured by bowel gas. LIVER: Normal. The liver is normal in size. The liver contour is normal. Parenchymal echogenicity is normal. No focal hepatic lesion. There is no intrahepatic biliary duct dilatation seen. GALLBLADDER: Normal. The gallbladder is physiologically distended without evidence of stones, sludge, polyps, wall thickening or pericholecystic fluid. No sonographic Leonard's sign. COMMON BILE DUCT: Normal in caliber measuring 0.6 cm in diameter. RIGHT KIDNEY: No hydronephrosis or renal calculi. There are several simple cysts seen in the lower pole 2.0 x 1.4 x 1.6 cm and mid kidney 0.6 x 0.6 x 0.5 cm and 1.8 x 1.5 x 1.9 cm, no imaging follow-up recommended. 5.1 x 4.4 x 4.5 cm lower pole cyst with a septum is most likely benign. No imaging follow-up is recommended. The kidney measures 13.4 cm in maximum dimension. FREE FLUID: None. US/US abdomen limited IMPRESSION: 1. Normal appearance of the liver. 2. The pancreas is obscured by bowel gas. 3. 5.1 cm lower pole cyst with a septum is most likely benign. No imaging follow-up recommended.
== END 2023-12-10 08:39 | disposition home or self-care (01) ==
LOC: HO.HMGCX 08:38
PROVIDERS: PCP Internal Medicine; Visit Provider Internal Medicine
DX: R79.89 Other specified abnormal findings of blood chemistry (principal)
CPT/HCPCS: 76705

== ENCOUNTER 2024-06-04 06:25 | Outpatient (REF) | payer MEDICARE, OTHER, SELFPAY ==
[2024-06-04 10:19] LABS: MANUAL DIFF FLAG NO
[2024-06-04 10:27] LABS: Basophils Percent Auto 0.8 % (0-2); Eosinophils Absolute Auto 0.1 X10*3/uL (0.0-0.4); Eosinophils Percent Auto 2.2 % (0-4); Hematocrit 42.7 % (42.0-52.0); Imm Gran Abs Auto 0.01 X10*3/uL (0.00-0.03); Imm Gran Pct Auto 0.2 % (0.0-0.4); Lymphocytes Absolute Auto 1.4 X10*3/uL (1.2-4.9); Lymphocytes Percent Auto 28.2 % (20-40); Mean Corpuscular HGB Conc 32.8 g/dl (31.0-36.0); Mean Corpuscular Hemoglobin 31.3 pg (27.0-33.0); Mean Corpuscular Volume 95.5 fL (80.0-98.0); Mean Platelet Volume 9.9 fL (9.4-12.4); Monocytes Absolute Auto 0.6 X10*3/uL (0.1-1.2); Monocytes Percent Auto 12.3 % (2-11); Neutrophils Absolute Auto 2.8 x10*3/uL (2.0-8.3); Neutrophils Percent Auto 56.3 % (45-73); Platelet Count 253 X10*3/uL (160-400); Red Blood Count 4.47 X10*6/uL (4.60-5.80); Red Cell Distribution Width 14.1 % (11.0-16.0)
[2024-06-04 11:03] LABS: Alanine Aminotransferase 67 U/L (0-40); Albumin Level 4.1 g/dL (3.5-5.0); Alkaline Phosphatase 80 U/L (39-117); Anion Gap 9 (12-20); Aspartate Amino Transferase 57 U/L (5-37); Bilirubin Total 1.6 mg/dL (0.0-1.0); Blood Urea Nitrogen 23 mg/dL (9-16); Calcium 9.5 mg/dL (8.4-10.2); Carbon Dioxide 29 mmol/L (22-29); Chloride 107 mmol/L (96-108); Cholesterol 144 mg/dL (<200); Estimated Glomerular Filt Rate > 60; Glucose Fasting 98 mg/dL (60-99); HDL Cholesterol 64 mg/dL (>40); LDL Cholesterol Calculated 67 mg/dL (<100); Sodium 141 mmol/L (135-145); Total Protein 7.1 g/dL (6.5-8.0); Triglycerides 67 mg/dL (<150)
[2024-06-04 11:05] LABS: HBS Num1 0.45 mIU/mL (0-7.99); HBc Num1 0.11 S/CO (0.00-0.79); HBsAGNum1 0.46 S/CO (0.00-0.99); Hepatitis B Core Antibody Nonreactive (Nonreactive); Hepatitis B Surface Antigen Negative (Negative); ~HepC Num1 0.87 S/CO (0.00-0.79); ~Hepatitis B Surface Antibody NONREACTIVE (Nonreactive)
[2024-06-04 12:58] LABS: ~HepC Num2 0.82; ~HepC Num3 0.83; ~Hepatitis C Antibody GRAYZONE (Nonreactive)
--- OUTSIDE RECORDS SUMMARY | 2024-06-10 16:11 | XMS_ITS | Continuity of Care Document ---
Author Name [facility] Organization [facility] Care Team Providers Care Rn Nicu Name Role Phone [facility] Unavailable Unavailable Immunizations Combined list of available immunizations from the Department of Defense and Veterans Affairs facilities. 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 Social History Type Response Date Comment Sour e This section is an empty social history section. [facility]
== END 2024-06-04 06:26 | disposition home or self-care (01) ==
LOC: HO.HMGCLDS 06:25
PROVIDERS: PCP Internal Medicine; Visit Provider Internal Medicine
DX: R00.1 Bradycardia, unspecified (principal); R79.89 Other specified abnormal findings of blood chemistry; K22.70 Barrett's esophagus without dysplasia
CPT/HCPCS: 36415; 80053; 80061; 85025; 86704; 86706; 86803; 87340

== ENCOUNTER 2024-06-11 08:43 | Outpatient (AMB) | payer MEDICARE, OTHER, SELFPAY ==
[2024-06-11 08:45] VITALS: BP 114/78; PULSE 57; O2SAT 98; BMI 24.1
--- NOTE | 2024-06-11 08:45 | AM.OFFVISMDC ---
Intake Vital Signs 06/11/24 08:45 Height 5 ft 10 in Weight 168 lb BMI 24.1 BP 114/78 Blood Pressure Location Lt brachial Position Sitting Pulse 57 Pulse Source Pulse Oximeter Pulse Oximetry (%) 98 Oxygen Delivery Method Room Air Intake Visit Reasons: SWV [id number] Allergies atorvastatin [Lipitor] Allergy (Unknown, Verified 06/11/24 08:49) dizzy ezetimibe [Zetia] Allergy (Unknown, Verified 06/11/24 08:49) does not remember lisinopril Allergy (Unknown, Verified 06/11/24 08:49) hyperkalemia Medication List - Last Reconciled 06/11/24 by Michelle Matias MD ascorbic acid (vitamin C) 500 mg PO DAILY aspirin (Adult Low Dose Aspirin) 81 mg PO DAILY atorvastatin 80 mg PO DAILY ferrous sulfate (Feosol) 325 mg PO DAILY pantoprazole 40 mg PO BID HPI SWV G0439 HPI Details Initiated the conversation about Advanced Directives. Advanced Directives help? patients prepare for current and future decisions about their medical treatment? and place of care. Discussed with patient that it is a process where a patients? current condition and prognosis are reviewed, their wishes for information? regarding their illness are elicited, and likely medical dilemmas are presented? and options discussed. The form can be amended as needed, reviewed yearly and? make changes as needed IPPE/AWV ? year old presents? for her ? Annual? Wellness Visit, initial visit.? Medical / Social History Reviewed? Past Medical History ?Yes? . ? [place]? of Care / Care Team list updated ?Yes . ? Surgical/Hospitalization? History ?Yes . ? Current Medications? (including OTC and supplements) ?Yes . ? Family History ?Yes? . ? Tobacco? Control form ?Yes . ? AUDIT-C (Alcohol use) form? ?Yes . ? Illicit drug use in Social? History ?Yes . ? Current diagnosis of? depression? ?No ? Appropriate PHQ2/PHQ9? completed ?Yes . ? Data entered by ?Medical? [facility] and reviewed by provider ? Fall Risk ? Fall? History? Have you had any falls with? injury in the past year? ?No . ? Have you had two or more? falls in the past year? ?No . ? Fall Risk Assessment: ?No? falls in the past year . ? HRA filled out by? the patient, reviewed by Provider and scanned. ? IPPE/AWV ? Balance? [place]? ?Yes . ? Tandem? walk ?Yes . ? Walk and? Turn ?Yes . ? Rise from? sit to stand ?Yes . ?Vision? Corrective? lens ?Yes ? Vision? screen ? Up-to-date, has an appointment [] for vision? screening and glaucoma screening ?Hearing? Whisper? test ?pass .? Initiated the conversation about Advanced Directives. Advanced Directives help? patients prepare for current and future decisions about their medical treatment? and place of care. Discussed with patient that it is a process where a patients? current condition and prognosis are reviewed, their wishes for information? regarding their illness are elicited, and likely medical dilemmas are presented? and options discussed. The form can be amended as needed, reviewed yearly and? make changes as needed Written? Plan?Completed. See Patient? Documents. [facility] Medical History (Updated 06/11/24 @ 09:24 by Michelle Matias MD) Dysplastic nevus Annual physical exam Iron deficiency BPH (benign prostatic hyperplasia) Sanders esophagus Hyperlipemia Surgical History (Updated 06/11/24 @ 09:25 by Michelle Matias MD) No pertinent past surgical history Family History Father No problems noted. Mother No problems noted. Social History Housing: House Patient Tobacco Use Status: Never used Tobacco e-Cigarette/Vaping Use: Never Used Second Hand Smoke Exposure: Yes service: Yes Current occupational status: retired Current occupational exposures/hazards: No Cognitive needs: No Hearing needs: No Vision needs: Yes Questionnaire Medicare Wellness Checkup [age] What gender do you identify with?: male During the past 4 weeks, how much have you been bothered by emotional problems such as feeling anxious, depressed, irritable, sad or downhearted, and blue?: not at all During the past 4 weeks, has your physical & emotional health limited your social activities with family, friends, neighbors, or groups?: not at all During the past 4 weeks, how much bodily pain have you generally had?: no pain During the past 4 weeks, was someone available to help you if you needed & wanted help?: yes, as much as I wanted During the past 4 weeks, what was the hardest physical activity you could do for at least 2 minutes?: very heavy Can you get to places out of walking distance without help? (For eg., can you travel alone on buses, taxis or drive your car?): Yes Can you go shopping for groceries or clothes without someone's help?: Yes Can you prepare your own meals?: Yes Can you do your housework without help?: Yes Because of any health problems, do you need the help of another person with your personal care needs such as eating, bathing, dressing or getting around the house?: No Can you handle your own money without help?: Yes During the past 4 weeks, how would you rate your health in general?: very good During the past 4 weeks how have things been going for you?: very well; could hardly better Are you having difficulties driving your car?: no Do you always fasten your seat belt when you are in a car?: yes, usually During past 4 weeks, have you been bothered by the following: never: Sexual problems?, Trouble eating well?, Problems using the telephone? and Tiredness or fatigue? and seldom: Falling or dizzy when standing up and Teeth or denture problems? Have you fallen 2 or more times in the past year?: No Are you afraid of falling?: No Are you a smoker?: no During the past 4 weeks, how many drinks of wine, beer, or other alcoholic beverages did you have?: 1 drink or less per week Do you exercise for about 20 minutes 3 or more times a week?: yes, most of the time Have you been given information to help with the following?: yes: Keeping track of your medications? and no: Hazards in your house that might hurt you? How often do you have trouble taking medicines the way you have been told to take them?: I always take medicine as prescribed How confident are you that you can control & manage most of your health problems?: very confident What is your race?: White Mini Mental State Exam (MMSE) Orientation What is the (year) (season) (date) (day) (month)?: year, season, date, day and month Where are we (state) (county) (town or city) (hospital) (floor)?: state, county, town or city, hospital/clinic and floor Registration Name of 3 unrelated objects clearly and slowly, then ask patient to repeat all 3 of them. (1st repeat determines score. Make sure they can repeat all three): object 1, object 2 and object 3 Attention & Calculation (CHOOSE ONE) Spell WORLD backwards (DLROW): 5 letters Recall Ask patient to repeat the 3 items from question #3.: object 1, object 2 and object 3 Language Show patient a wristwatch & ask what it is. Repeat for pencil.: watch and pencil Ask the patient to repeat the phrase 'No ifs, ands, or buts' after you.: correct Ask the patient to 'take a piece of paper with their right hand' 'fold paper in half' 'place paper on floor': take paper in right hand, fold paper in half and place paper on floor Print the sentence 'CLOSE YOUR EYES' on a piece. If patient actually closes eyes then score.: followed written direction Give patient a blank piece of paper & ask to write a sentence. Score if it contains a noun & verb.: sentence contains subject and verb Score Score: 29 PHQ-9 Over the last 2 weeks, how often have you been bothered by any of the following problems? 1. Little interest or pleasure in doing things: not at all 2. Feeling down, depressed, or hopeless: not at all 3. Trouble falling or staying asleep, or sleeping too much: not at all 4. Feeling tired or having little energy: not at all 5. Poor appetite or overeating: not at all 6. Feeling bad about yourself - or that you are a failure or have let yourself or your family down: not at all 7. Trouble concentrating on things, such as reading the newspaper or watching television: not at all 8. Moving or speaking so slowly that other people could have noticed. Or the opposite - being so fidgety or restless that you have been moving around a lot more than usual: not at all 9. Thoughts that you would be better off or of hurting yourself in some way: not at all Total score: 0 Depression Screening Interpretation: Negative Depression Screening Done: Yes 00472 - PHQ-9 Billing: Yes Source: Developed by Drs. Geremias Ramirez, Amber Quiles, Shreyas Ricci and colleagues, with an educational janny from [employer]. Review of Systems Const All systems reviewed & are unremarkable except as noted in HPI and below Eyes Reports no additional complaints ENT Reports no additional complaints Card Reports no additional complaints Resp Reports no additional complaints GI Reports no additional complaints Reports no additional complaints Musc Reports no additional complaints Physical Exam Vital Signs: Last Vital Signs Pulse 57 06/11/24 08:45 BP 114/78 06/11/24 08:45 Pulse Ox 98 06/11/24 08:45 Oxygen Delivery Method Room Air 06/11/24 08:45 BMI result Body Mass Index 24.1 Const General: no acute distress HEENT Head: Yes normal to inspection Ears: hearing grossly normal bilaterally Eyes General: appearance normal, both eyes and all related structures Neck Neck: Yes no lymphadenopathy and Yes supple Resp Effort & Inspection: normal respiratory effort Auscultation: clear to auscultation bilaterally Cardio Rhythm: regular rhythm Heart sounds: S1 normal heart sound present and S2 normal heart sound present GI Inspection: Yes normal to inspection Palpation (GI): Soft to palpation Percussion: Yes normal to percussion Auscultation: normal bowel sounds Extrem General: Yes no clubbing, cyanosis or edema Assessment & Plan Assessment & Plan (1) Annual physical exam: Code(s): Z00.00 - Encounter for general adult medical examination without abnormal findings Plan: Well-balanced diet regular physical activity discussed with the patient. 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 Avalos Code(s): K22.70 - Sanders's esophagus without dysplasia Plan: Continue PPI follow-up with GI (5) Hx of colonoscopy: Comment: at 63 Code(s): Z98.890 - Other specified postprocedural states Plan: Patient will check with GI when he is due for a repeat colonoscopy Orders: Orders Comprehensive [place]. Panel Fast 6 Months R79.89 - Other specified abnormal findings of blood chemistry, Z00.00 - Encounter for general adult medical examination without abnormal findings Liver Kidney Microsomal Ab 6 Months R79.89 - Other specified abnormal findings of blood chemistry, Z00.00 - Encounter for general adult medical examination without abnormal findings Comprehensive [place]. Panel Fast 1 Year E78.5 - Hyperlipidemia, unspecified, R79.89 - Other specified abnormal findings of blood chemistry, Z00.00 - Encounter for general adult medical examination without abnormal findings Complete Blood Count Auto Diff 1 Year E78.5 - Hyperlipidemia, unspecified, R79.89 - Other specified abnormal findings of blood chemistry, Z00.00 - Encounter for general adult medical examination without abnormal findings Hepatitis B,C Profile 6 Months R79.89 - Other specified abnormal findings of blood chemistry, Z00.00 - Encounter for general adult medical examination without abnormal findings Lipid Panel 1 Year E78.5 - Hyperlipidemia, unspecified, R79.89 - Other specified abnormal findings of blood chemistry, Z00.00 - Encounter for general adult medical examination without abnormal findings Gamma Glutamyl Transpeptidase 6 Months E78.5 - Hyperlipidemia, unspecified, R79.89 - Other specified abnormal findings of blood chemistry, Z00.00 - Encounter for general adult medical examination without abnormal findings Medications: Refilled atorvastatin 80 mg PO DAILY 90 tabs 3RF Quality Reporting (2019) Depression/Bipolar (159/160/161/177) PHQ-9: Total score: 0 Coding Level of Care Code Medicare Subsequent (G0439) Diagnoses Annual physical exam Z00.00 Elevated LFTs R79.89 Hyperlipemia E78.5 Sanders esophagus K22.70 Hx of colonoscopy Z98.890 CPT Codes Advance Care Planning - Advance Care Planning discussion: On file, no changes ([id number]) Advance Care Planning - Time spent: 1-15 minutes, on File ([id number]) Additional Codes PHQ-9 - 77828 - PHQ-9 Billing: Yes ([id number]) Advance Care Planning Advance Care Planning discussion: On file, no changes Forms completed: Health Care Proxy Time spent: 1-15 minutes, on File Did not discuss due to Cultural/Spiritual beliefs: Yes
== END 2024-06-11 09:11 | disposition home or self-care (01) ==
PROVIDERS: PCP Internal Medicine; Visit Provider Internal Medicine
DX: Z00.00 Encounter for general adult medical examination without abnormal findings (principal); E78.5 Hyperlipidemia, unspecified; Z68.24 Body mass index [BMI] 24.0-24.9, adult; K22.70 Barrett's esophagus without dysplasia; Z98.890 Other specified postprocedural states

== ENCOUNTER → 2024-06-11 08:43 | Outpatient (BNVA) | payer MEDICARE, OTHER, SELFPAY | PROVIDERS: PCP Internal Medicine; Visit Provider Internal Medicine | DX: Z00.00 Encounter for general adult medical examination without abnormal findings (principal); R79.89 Other specified abnormal findings of blood chemistry; E78.5 Hyperlipidemia, unspecified; K22.70 Barrett's esophagus without dysplasia; Z98.890 Other specified postprocedural states | CPT/HCPCS: 96127 ==

== ENCOUNTER 2024-10-20 10:42 | Outpatient (AMB) | payer MEDICARE, OTHER, SELFPAY ==
--- OUTSIDE RECORDS SUMMARY | 2024-10-20 10:44 | XMS_ITS | Continuity of Care Document ---
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 Name Role Phone Michelle Matias MD Primary Care Physician [phone] Encounter [facility] Date(s): 10/16/24 - 10/16/[address] [address] Discharge Disposition: A-D/C Home Attending Physician: Geraldine Avalos Jr, MD Admitting Physician: Geraldine Avalos Jr, MD Referring Physician: Geraldine Avalos Jr, MD Encounter Type: Disch Daystay Allergies, Adverse Reactions, Alerts Substance Criticality Severity Reaction Reaction Severity Status lisinopril Active Immunizations Given and Recorded Vaccine Date Status Refusal Reason tetanus/diphtheria/pertussis, acel(Tdap) 10/03/18 Given Problem List Condition Confirmation Course Effective Dates Status H ealth Status Informant Rosado's esophagus Confirmed Active CVA (cerebrovascular accident) Confirmed Active Gastroesophageal reflux Confirmed Active Hiatal hernia with GERD Confirmed Active Hyperlipidemia Confirmed Active Hypertension Confirmed Active Vital Signs Most recent to oldest [Reference Range]: 1 2 3 Height 178 cm (10/16/24 7:08 AM) Oxygen Saturation [94-100 %] 100 % (10/16/24 8:42 AM) 98 % (10/16/24 8:38 AM) 99 % (10/16/24 8:23 AM) Pulse Rate [55-90 bpm] 62 bpm (10/16/24 7:08 AM) Blood Pressure [90-138/55-84 mm Hg] 168/94mm Hg *H* (10/16/24 8:42 AM) 177/88mm Hg *H* (10/16/24 8:38 AM) 173/89mm Hg *H* (10/16/24 8:23 AM) Respiratory Rate [16-30 br/min] 15 br/min *L* (10/16/24 8:42 AM) 13 br/min *L* (10/16/24 8:38 AM) 15 br/min *L* (10/16/24 8:23 AM) Temperature [96.8-100.4 DegF] 98.2 DegF (10/16/24 8:04 AM) 97.9 DegF (10/16/24 7:08 AM) Mode of Delivery (Oxygen) Room air (10/16/24 8:42 AM) Room air (10/16/24 8:38 AM) Room air (10/16/24 8:23 AM) Blood pressure sites Arm, left (10/16/24 8:42 AM) Arm, left (10/16/24 8:38 AM) Arm, left (10/16/24 8:23 AM) Temperature Route Temporal (10/16/24 8:04 AM) Temporal (10/16/24 7:08 AM) Dry Weight 75 kg (10/16/24 7:08 AM) Social History Social History Type Response Smoking Status Never (less than 100 in lifetime) entered on: 08/18/23 Sex Sex Representation Male (finding) Hospital Progress note * Cydney Yang RN: PERFORM, SIGN, VERIFY Event Display: Progress Note Hospital Authored Date: [id number] Patient: GERALDINE WILKERSON [facility]: [id number] Age: 73 years Sex: Male : 1950 Associated Diagnoses: None Author: Cydney Yang RN Findings Narrative/Incidental Patient is scheduled for procedure September at [facility] Attempted to reach patient to review instructions Left instruction on patient's voicemail re: time/date /location of procedure. Informed patient a reminder call will be given the evening prior to procedure and time may change. Requested patient follow all dietary instructions from GI office Patient instructed to bring apicture ID/insurance card and to be sure to make arrangements for a responsible adult be available to drive patient home after procedure ( no public transportation without escort) No food after midnight before procedure May have clear liquids from that point forward up to 3 hours prior to proceduretime. Requested patient call GI office at [phone] with any questions or if currently taking any blood thinners/diabetic/weight loss medications as some medications need to be held prior to procedure. Note * Yari Blas RN: PERFORM Event Display: Discharge/Transfer Note Hospital Authored Date: [id number] Nursing Discharge Note Entered On: 10/16/2024 8:28 EDT Performed On: 10/16/2024 8:28 EDT by Yari Blas RN Nursing Discharge Note 2 Discharge Time : 10/16/2024 9:03 EDT Yari Blas RN - 10/16/2024 9:03 EDT Discharge Level of Care at Discharge : Home/Assisted/Foster Care Yari Blas RN - 10/16/2024 8:28 EDT * Yari Blas RN: PERFORM Event Display: Patient Education/Instruction Authored Date: [id number] Surgery Adult Discharge Instructions [place] [id number] Name: GERALDINE WILKERSON : 1950?? Visit: 10/16/2024 06:27?? Current Date: 10/16/2024 08:29 ?? Account: [id number]?? Surgery Discharge Instructions We would like to thank you for allowing us to assist you with your healthcare needs. The following includes patient education materials and information regarding your injury/illness. Our entire staffstrives to provide an excellent experience for our patients and their families. PLEASE ENSURE YOU FOLLOW-UP PER THE INSTRUCTIONS BELOW! ?? YOUR OPINION IS IMPORTANT TO US! Please complete the survey you may receive by mail or email. Your feedback will be used to make improvements to the healthcare experiences of our patients and their families. Surveys are administered by [employer] ?? If further treatment with your primary care physician or another doctor is recommended, it is important for you to keep the appointment. Call your primary care physician or return to the Emergency Department immediately if your condition worsens, fails to improve, or new symptoms develop. If you need to find a doctor, you can call [facility] for a referral at [phone] or toll free at [phone] ([phone]) or log in to [email or web address].. ?? [facility], in keeping with [facility] guidance, no longer requires face masks for staff, patientsor visitors in most situations. Similiar to time spent indoors at other locations, there is the chance that you were exposed to repiratory viruses during your time with us (such as flu or COVID-19). If you develop symptoms concerning for a viral respiratory infection, please seek testing (and treatment if indicated) from your medical provider or home test kit. ?? You can view and manage your care through the patient portal or by using a health care ni of your choosing. [employer] is a website that allows you to securely view your medical information including your hospital discharge summary, office visit summaries, medications and follow-up visits. You can also request appointments, renew medications, and request access to your medical information using a health care ni of your choosing, or just ask a question. You are entitled to know the individuals who participated in your treatment. This information is available within your medical record and will be provided upon your request. You can enroll at [email or web address] or register d uring your next office visit. You have been discharged from [facility], Patient Care Unit: ENDO??. If you have any questions regarding these instructions after you leave, please call us and we will be happy to assist you. [facility] Your Care Team Attending Physician Geraldine Avalos Jr, MD?? Discharging Providers Geraldine Avalos Jr, MD Reason for Admission ROSADO'S ESOPHAGUS WITHDYSPLASIA Your Diagnosis Erosive gastroesophageal reflux disease Rosado's esophagus with dysplasia Primary Care Provider Michelle Matias MD? Advance Directive Health Care Proxy on File Yes - Health Care Proxy What to do next Instructions From Your Doctor Today we completed endoscopic?? [ablation of Rosado's dysplastic tissue in your esophagus]. ??Thisprocedure was successful. ??It is common to experience some mild to moderate chest discomfort following this procedure. ??It is important you take the following medicines as prescribed to decrease your symptoms: ?? -Please take Carafate slurry 1 g 3 times a day with meals and once again at bedtime for?? 21 days?? -There has been some persisting reflux disease noted in your esophagus.?? I think that the recurrence of Rosado's esophagus is related to uncontrolled reflux disease.?? I would like to change to both Voquenza 20 mg twice a day from your pantoprazole.?? It is not clear if your insurance will cover this medicine?I have prescribed.?? Please let us know if you have difficulty filling it.?? Untilyou start this medicine, continue pantoprazole twice daily. -For pain, you may use acetaminophen-codeine solution, 12 mg / 5 mL as needed for pain every ??6 hours for the next 3 days. Do not take other Tylenol or Acetaminophen medications when taking this medicine. Do not drive or operate heavy machinery or sign legal documents/make important decisions on this medicine -Please maintain a liquid diet for [24] hours and then resume a soft diet for 1 week. ??-Repeat endsocopy??in 2 months.?? -You should be contacted by our office in next 2 weeks to schedule next endoscopy procedure, if youdo not hear from us within 2 weeks, please call our office. ?? Orders? 10/16/24 8:13:00 EDT?? You Need to Schedule the Following Appointments Follow Up with??Follow up with primary care provider as needed Follow Up with??Michelle Matias When:??In 0 days Where: [address] [place] [address]- Business (1) Discharge Medications WILKERSONGERALDINE RICKS :1950 Visit Date:10/16/2024 Medications: Please continue your medications until treatment is completed or stopped by your provider. You may resume your daily prescription medications. Discuss any questions related to medications with your provider. What How Much When Why Instructions Next Dose New vonoprazan (Voquezna 20 mg oral tablet) 1 tab(s) Oral Twice a day Erosive gastroesophageal reflux disease Rosado's esophagus with dysplasia Refills: 2 Pickup at [facility]/pharmacy #[id number] Unchanged Acetaminophen/ Codeine (acetaminophen-codeine 120 mg-12 mg/ 5 mL oral liquid) 5 Milliliter Oral Every 4 hours as needed for for pain not to exceed 4000 mg acetaminophen per day ?? Unchanged Aspirin 81 Milligram Oral Daily Unchanged Atorvastatin (Lipitor 80 mg oral tablet) 1 tab(s) Oral Daily Duration: 30 Days Unchanged Calcium Acetate 2,001 Milligram Oral Unchanged Carbonyl Iron (Iron Chews) 15 Milligram Oral Daily Unchanged Multivitamin (Multivitamin Tablet) 1 tab(s) Oral Daily Unchanged Sucralfate (Carafate 1 gm oral tablet) 1 tab(s) Oral 4 times a day Duration: 21 Days mix with water and drink as slurry ?? Pickup at [facility]/pharmacy #[id number] Pharmacy Information [facility]/pharmacy #[id number]: [address] [place] [address] [phone] ?? What How Much When Comments Stop Taking Pantoprazole (pantoprazole 40 mg oral delayed release tablet) 1 tab(s) Oral Twice a day Allergies (NKA means No Known Allergies) lisinopril Education Materials Below is the list of Educational Leaflet Providered with your Discharge Instructions. [employer] Patient Education - Surgery Medical Daystay Surgical Overnight Discharge Instructions?? [employer] Ignite Patient Education - Rosado???s Esophagus Discharge Instructions?? [employer] Ignite Patient Education - What Is Rosado Esophagus??? Valuables and Belongings I fully understand and agree that [facility] accepts no responsibility for all my personal property including clothing, toilet articles, radios, jewelry, dentures, hearing aids, rings, money, or any other property that is in my possession or is brought to me after admission. I understand certain valuables may be placed in a hospital safe for a short period of time. I understand that the hospital is not liable for loss or damage due to accident, fire, or other natural occurrence while said property is in the safe. I accept full responsibility for any personal property that I keep with me, and will not hold the hospital responsible in case of loss or disappearance. I acknowledge that i have been encouraged to send valuables and belongings home. ?? Review of Valuable and Belonging List: With patient Date for Pt to Sign Valuables/Belongings: 10/16/24 07:08:00 ?? Valuables & Belongings ?? Clothes Electronic devices Jewelry Monetary Items Personal devices Miscellaneous Medications (Valuables) Valuables at Bedside Jacket, Pants, Shirt, Undergarments Cell phone ? Glasses ? Valuables Sent Home ? Valuables Sent to Security ? Valuables Sent to Locker ? Other Discharge Information ? Case Management Discharge Plan?? Discharge Plan?? Discharge Level of Care at Discharge: Home/Assisted/Foster Care ?? Pulmonary Rehab Status?? Pulmonary Rehab Discharge Status?? Respiratory Rate:??15 br/min??Low ? Common Emergency Awareness Tips IS IT A STROKE? Act FAST and Check for these signs: FACE Does the face look uneven? ARM Does one arm drift down? SPEECH Does their speech sound strange? TIME Call at any sign of stroke ?? Heart Attack Signs Chest discomfort: Most heart attacks involve discomfort in the center of the chest and lasts more than a few minutes, or goes away and comes back. It can feel like uncomfortable pressure, squeezing, fullness or pain. Discomfort in upper body: Symptoms can include pain or discomfort in one or both arms, back, neck, jaw or stomach. Shortness of breath: With or without discomfort. Other signs: Breaking out in a cold sweat, nausea, or lightheaded. Remember, MINUTES DO MATTER. If you experience any of these heart attack warning signs, call to get immediate medical attention! ?? Smoking can increase your chances of developing chronic health problems and can cause harmful effects to other family members in your house. If you smoke, you are strongly encouraged to quit. Please call [facility] Loc[facility] Link at [phone] or [phone] Radio (8948) or log in to [email or web address] for referrals to smoking cessation programs. ?? The National Suicide Prevention Hotline is available 22/01 if you or someone you know needs to find a reason to keep living. By calling 9-600-572-GMI Ratings (8795) you'll be connected to a skilled, trained counselor at a crisis center in your area. SURGERY DISCHARGE INSTRUCTIONS SIGNATURE GERALDINE SHI Location:[facility] Registration Date and Time:10/16/2024 06:27 EDT Primary Care Physician: Michelle Matias MD, Attending Physician: Geraldine Avalos Jr, MD, I GERALDINE WILKERSON, have received the above patient education materials/instructions and have verbalizedunderstanding. If ambulance or transport services are being used I further acknowledge being given a choice of service. ?? If you need to contact me, please call me at this number: . Patient/Translational Specialist Name: Patient/Translational Specialist Signature: Relationship to Patient: Witness Name/Signature: Date: * Yari Blas RN: PERFORM, SIGN, VERIFY Event Display: Patient Education Handout Authored Date: [id number] * Yari Blas RN: PERFORM Event Display: Patient Education Leaflets Authored Date: [id number] Surgery Medical Daystay Surgical Overnight Discharge Instructions ?? 295 Medical Daystay/Surgical Overnight Discharge Instructions ? Since your coordination and judgment may be altered by medication and/or anesthesia, a responsible adult must drive you home from the hospital. ? If you have received medication for pain or sedation while under our care, you should not drive, operate machinery, drink alcohol, or sign any legal documents for 24 hours.?? You should have someone with you at home tonight. ? Remain at home the day of discharge.?? You may be up and about unless otherwise instructed by your physician. ? You may resume your daily prescription medication schedule.?? Any depressant medication should be avoided for 24 hours unless otherwise instructed by your surgeon or anesthesiologist. ? Call your physician for a follow-up appointment.? If you experience unusual or severe pain not relied by your pain medication, excessive bleedingor drainage, persistent nausea and vomiting, excessive swelling or redness, foul odor from incisionsite or fever over 100.6F, you need to call your physician. ? A follow-up phone call by a nurse will be made the day after your procedure.?? If you have stayed with us over night, you will not be receiving a follow-up phone call. ? Nausea and vomiting are a common side effect of prescription pain medication.?? We recommend that pills are not taken on an empty stomach.?? While taking any prescription pain medication you should not drive or drink alcohol. ? * Yari Blas RN: PERFORM Event Display: Patient Education Leaflets Authored Date: [id number] Rosado???s Esophagus Discharge Instructions ?? 685 ?? Rosado???s Esophagus Discharge Instructions ??You must carefully read the Consumer Information Use and Disclaimer below in order to understand and correctly use this information??About this topicThe esophagus is a tube which passes food from the mouth to the stomach. Sometimes, normal cells in the lower part of the esophagus change to a different kind of cell. This is called Rosado's esophagus. It is most often caused by acid reflux which happens when the contents of the belly leak into thefood pipe. This leaking can irritate the food pipe. If you have acid reflux, your doctor may also check to see if you have Rosado's esophagus. Rosado's esophagus is not cancer. A small number of the abnormal cells may turn into precancer or cancer of the esophagus. Doctors take a biopsy of your esophagus to find these abnormal cells.??What care is needed at home? Ask your doctor what you need to do when you go home. Make sure??you ask questions if you do not understand what the doctor says. This way you will know what you need to do. ??? Take all drugs as ordered by your doctor. Drink lots of water when??taking your drugs. ??? Keep a healthy weight. ??? Avoid stress. ??? Avoid belts and clothing that are too tight. ??? Eat small meals more often. Do not skip meals. Do not eat large meals??to make up for missed meals. ??? Avoid eating 2 to 3 hours before bedtime. ??? Avoid foods that cause you to have heartburn. ??? Do not to lie down for at least 2 hours after eating. ??? Raise the head of your bed 6 to 8 inches (15 to 20 cm). Use wooden??blocks under the head of the bed. Justsleeping with your head raised??on pillows is not enough. ??? Do not drink beer, wine, and mixed drinks (alcohol). ??? Do not smoke. ??What follow-up care is needed?Your doctor may ask you to make visits to the office to check on your progress. Be sure to keep these visits. You may need regular checks of your esophagus.??What drugs may be needed?The doctor may order drugs to: ??? Relieve heartburn ??? Prevent reflux ??? Lessen acid production ??? Heal the esophageal lining ??Will physical activity be limited?Your physical activities will not be limited.??What changes to diet are needed? Limit caffeine intake. ??? Avoid eating oranges, berries, tomatoes, and other foods high in acid. ??? Eat only small amounts of spicy, fatty, and fried foods, or avoid them??altogether. ??What problems could happen? Precancerous changes in the esophagus ??? Higher risk of cancer of the esophagus ??What can be done to prevent this health problem? Eat a healthy diet. Eat lots of fruits and vegetables. ??? If you weigh too much, lose weight. ??? If you are a smoker, stop smoking. ??? Limit beer, wine, and mixed drinks (alcohol). ??When do I need to call the doctor? Pain or a feeling of food getting stuck in your throat??Throwing up often or throwing up fluid that looks like blood or coffee??grounds ??? Black tarry stools??? Pain in the neck, chest, or back ??? Very bad heartburn that lasts for a long time ??? Cough, hoarse voice, or bad breath ??? Wheezing, shortness of breath or other problems breathing ??? Unintended weight loss or not wanting to eat ??? You are not feeling better in 2 to 3 days or you are feeling worse ??Teach Back: Helping You UnderstandThe Teach Back Method helps you understand the information we are giving you. After you talk with the staff, tell them in your own words what you learned. This helps to make sure the staff has described each thing clearly. It also helps to explain things that mayhave been confusing. Before going home, make sure you can do these:? I can tell you about my condition. ??? I can tell you what I can do to help my acid reflux. ??? I can tell you what I will doif I feel like I have food stuck in my throat;??pain in my neck, chest, or back; or have trouble breathing. ??Where can I learn more?[email or web address] Information Use and Disclaimer:This generalized information is a limited summary of diagnosis, treatment, and/or medication information. It is not meant to be comprehensive and should be used as a tool to help the user understand and/or assess potential diagnostic and treatment options. It does NOT include all information about conditions, treatments, medications, side effects, or risks that may apply to a specific patient. It is not intended to be medical advice or a substitute for the medical advice, diagnosis, or treatment of a health care provider based on the health care provider's examination and assessment of a patient???s specific and unique circumstances. Patients must speak with a health care provider for complete information about their health, medical questions, and treatment options, including any risks or benefits regarding use of medications. This information does not endorse any treatments or medications as safe, effective, or approved for treating a specific patient. [employer] and its affiliates disclaim any warranty or liability relating to this information or the use thereof. The use of this information is governed by the Terms of Use, available at??https://[email or web address]/[email or web address]/xtadnqnt-klebgtyrvnyxa-ungzmFrfc Updated 08/24/21? * Yari Blas RN: PERFORM Event Display: Patient Education Leaflets Authored Date: [id number] What Is Rosado Esophagus? ?? [address] What Is Rosado Esophagus? You have Rosado esophagus. This means that there have been changes to the lining of the esophagus near the stomach. The changes may have been caused by the acid reflux that happens with GERD (gastroesophageal reflux disease). The changed lining isn't cancer. But it may increase your chances of developing cancer later on.?? When you have GERD The esophagus is the tube that carries food and liquid from the mouth to the stomach. Your lower esophageal sphincter (LES) is a 1-way valve at the top of the stomach. It keeps food and stomach acid from flowing backward. If the LES is weakened, food and stomach acid flow back (reflux) into your esophagus. If this happens often, the condition is called GERD. ?? Changes in the lining The stomach is kept safe from its own acid by a special lining. The esophagus isn???t meant to contact stomach acid. But a small amount of acid reflux is normal and occurs in many people. With GERD, acid flows back into the esophagus often. This damages the esophagus. In response to the damage, newtissue forms that isn't normal.??This is Rosado esophagus. The new tissue may keep changing. This is why it's more likely to become cancer in the future. ?? Preventing further damage Your healthcare provider may suggest regular tests to keep track of changes in the esophagus. This often includes an endoscopy, when a flexible lighted scope is placed through the mouth into the esophagus. Tissue samples (biopsies) can be taken of the abnormal areas. You're sedated with an IV (intravenous) medicine for comfort. Your provider may also suggest ways for you to control GERD. This includes lifestyle changes such as quitting smoking and staying at a healthy weight. Medicine or even surgery may also be suggested. This should help keep your Rosado esophagus from getting worse. If it does get worse, more treatment is often done during an endoscopy. ?? Symptoms of GERD Symptoms include: ??? Heartburn ??? Sour-tasting fluid backing up into your mouth ??? Frequent burping or belching ??? Symptoms that get worse after you eat, bend over, or lie down ??? Coughing repeatedly to clear your throat ??? Hoarseness ??? Trouble swallowing ?? Last Reviewed Date: 2023 00:00:00 ?? [id number] [employer] Txwv tsis pub yuam tas nrho cov alla kav. Cov ntsiab mamadou ntamw no tsis yog muab coj los ua ib yam hloov chaw rubens txoj george mera mob nkeeg. Yuav tsum ua raws li koj tug kws mera mob cov mamadou taw qhia tas mus li. ?? Patient Care team information Care Team Personnel Name: Evette Reina RN Position: Kristen RN Member Role: Primary Care Nurse Name: Michelle Matias MD Position: [facility] Physician - Primary Care Member Role: PCP Address: [address], [place] [address] Telecom: Name: Sunil Santana RN Position: [facility] RN Member Role: Primary Care Nurse Name: Justus Encarnacion Position: [facility] RN Supv Member Role: Primary Care Nurse Name: Cintia Roberts RN Position: [facility] RN Member Role: Primary Care Nurse Name: Anai Mcmillan RN Position: [facility] RN Member Role: Primary Care Nurse Care Team Related Persons Name: TYLER WILKERSON Name: DANIKA WILKERSON Insurance Providers Guarantor name: CARMINA Health Plan Information #: 1 Payer: MEDICARE PART B OUTPT Member Number: [id number] Policy Number: Group Number: Health Plan Information #: 3 Payer: FOR LIFE MCR A ONLY Member Number: [id number] Policy Number: NA Group Number: [id number] Health Plan Information #: 2 Payer: MEDEX Member Number: [id number] Policy Number: NA Group Number: [id number]
--- OUTSIDE RECORDS SUMMARY | 2024-10-20 10:44 | XMS_ITS | Continuity of Care Document ---
Author Name [facility] Organization [facility] Care Team Providers Care Trader Fixed Income Name Role Phone [facility] Unavailable Unavailable Immunizations Combined list of available immunizations from the Department of Defense and Veterans Affairs facilities. Immunization Series Date Given Administered By Site Reaction Lot Number [id number] Code Drug Investment Accountant Status Comments Source COVID-19 (MODERNA), MRNA, LNP-S, PF, 100 MCG/0.5 ML DOSE 2 2020 207 complet ed MOD; [id number]; IELD COVID-19 (MODERNA), MRNA, LNP-S, PF, 100 MCG/0.5 ML DOSE 1 2020 207 complet ed MOD; [id number]; IELD Social History Combined list of available smoking, tobacco, and other social history from Department of Defense and Veterans Affairs facilities. Social History Type Response Date Comment Sour e This section is an empty social history section. DoD
--- NOTE | 2024-10-20 10:49 | MHC.OFFWIV ---
Intake Vital Signs 10/20/24 10:50 Weight 170 lb BP 132/80 Blood Pressure Location Rt brachial Position Sitting Pulse 59 Pulse Source Pulse Oximeter Pulse Oximetry (%) 99 Oxygen Delivery Method Room Air Intake Visit Reasons: EP- HB pressure Intake Note: Patient here for elevated BP while at a GI procedure. Patient Tobacco Use Status: Never used Tobacco Allergies atorvastatin [Lipitor] Allergy (Unknown, Verified 10/20/24 10:51) dizzy ezetimibe [Zetia] Allergy (Unknown, Verified 10/20/24 10:51) does not remember lisinopril Allergy (Unknown, Verified 10/20/24 10:51) hyperkalemia Do you need a note to return to daycare/school/sports/work: No HPI HPI Comments History of Present Illness Details History of Present Illness - The patient is a 74-year-old male presenting with elevated blood pressure reading x4, he thinks the top # was 170's. - His blood pressure was reported as elevated by his doctor 4 days ago during an upper endoscopy. - The patient did not report headache, dizziness, or chest pain, although feelings of anxiety were noted. - Previous elevated blood pressure was managed with medication until two years ago; no medication is currently being taken and he does not have a diagnosis of hypertension. - The patient does not possess a home blood pressure cuff for self-monitoring. - The patient acknowledges this could be white coat syndrome , he tells me he is having upper endoscopies every 3 months for Barretts Esophagus. Physical Exam General: Cooperative, healthy appearing, comfortable, no acute distress and well developed Orientation: Patient oriented x3 Limitations: No limitations Head: Normal to inspection Ears: Hearing grossly normal bilaterally Nose: Normal External nose present Face and sinus: Normal facial exam Eyes: Appearance normal, both eyes and all related structures Neck: Normal visual inspection and Yes full ROM Respiratory: Normal respiratory effort and able to speak in complete sentences. Skin: No rashes or lesions noted Neuro: Patient oriented x3 Extremities: Normal to inspection [facility] Medical History (Updated 10/20/24 @ 11:03 by Anai Edward PA-C) Dysplastic nevus Annual physical exam Iron deficiency BPH (benign prostatic hyperplasia) Sanders esophagus Hyperlipemia Surgical History (Updated 06/11/24 @ 09:25 by Michelle Matias MD) No pertinent past surgical history Family History Father No problems noted. Mother No problems noted. Social History Housing: House Patient Tobacco Use Status: Never used Tobacco e-Cigarette/Vaping Use: Never Used Second Hand Smoke Exposure: Yes service: Yes Current occupational status: retired Current occupational exposures/hazards: No Cognitive needs: No Hearing needs: No Vision needs: Yes Review of Systems Const All systems reviewed & are unremarkable except as noted in HPI and below Physical Exam Vital Signs: Last Vital Signs Pulse 59 10/20/24 10:50 BP 132/80 10/20/24 10:50 Pulse Ox 99 10/20/24 10:50 Oxygen Delivery Method Room Air 10/20/24 10:50 Assessment & Plan Assessment & Plan (1) Elevated blood pressure reading in office without diagnosis of hypertension: Code(s): R03.0 - Elevated blood-pressure reading, without diagnosis of hypertension Plan: Today is BP is normal, 132/80. This was likely White Coat Syndrome. Following the identification of elevated blood pressure, I have directed for the provision of a home blood pressure cuff via the patient's pharmacy, addressing insurance coverage due to his multiple insurance policies. The patient is advised to monitor his blood pressure twice daily, documenting the readings over several days. Should the pressure remain elevated consistently above 140/90 mmHg, he must arrange to consult with his physician, Dr. Matias. This approach seeks to differentiate between chronic hypertension and possible white coat syndrome, providing clarity on the necessity of further management or monitoring. In cases of severely elevated readings 170/180 mmHg plus accompanying symptoms, an urgent visit to the emergency department is mandatory to rule out hypertensive emergency/urgency. Patient was informed and verbally consented to the use of an ambient scribe for clinic note documentation during this visit. Medications: New blood pressure test kit-wrist As directed 1 ea 0RF Coding Level of Care Code Est Pt Level 3 (10590) Diagnoses Elevated blood pressure reading in office without diagnosis of hypertension R03.0
[2024-10-20 10:50] VITALS: BP 132/80; PULSE 59; O2SAT 99
== END 2024-10-20 11:33 | disposition home or self-care (01) ==
PROVIDERS: PCP Internal Medicine; Visit Provider Physician Assistant
DX: R03.0 Elevated blood-pressure reading, without diagnosis of hypertension (principal)

== ENCOUNTER → 2024-10-20 10:42 | Outpatient (BNVA) | payer MEDICARE, OTHER, SELFPAY | PROVIDERS: PCP Internal Medicine; Visit Provider Physician Assistant | DX: R03.0 Elevated blood-pressure reading, without diagnosis of hypertension (principal) | CPT/HCPCS: 99212 ==

== ENCOUNTER 2024-12-11 06:04 | Outpatient (REF) | payer MEDICARE, OTHER, SELFPAY ==
--- OUTSIDE RECORDS SUMMARY | 2024-12-11 06:07 | XMS_ITS | Continuity of Care Document ---
Author Name [facility] Organization [facility] Care Team Providers Care Organ Grinder Name Role Phone [facility] Unavailable Unavailable Immunizations Combined list of available immunizations from the Department of Defense and Veterans Affairs facilities. Immunization Series Date Given Administered By Site Reaction Lot Number [id number] Code Drug Plow Mechanic Status Comments Source COVID-19 (MODERNA), MRNA, LNP-S, PF, 100 MCG/0.5 ML DOSE 2 2020 207 complet ed MOD; [id number]; IELD COVID-19 (MODERNA), MRNA, LNP-S, PF, 100 MCG/0.5 ML DOSE 1 2020 207 complet ed MOD; [id number]; IELD Social History Combined list of available smoking, tobacco, and other social history from Department of Defense and Veterans Affairs facilities. Social History Type Response Date Comment Sour e This section is an empty social history section. DoD
[2024-12-11 10:29] LABS: Alanine Aminotransferase 51 U/L (0-40); Albumin Level 4.2 g/dL (3.5-5.0); Alkaline Phosphatase 76 U/L (39-117); Anion Gap 8 (12-20); Aspartate Amino Transferase 46 U/L (5-37); Bilirubin Total 1.2 mg/dL (0.0-1.0); Blood Urea Nitrogen 26 mg/dL (9-16); Calcium 9.1 mg/dL (8.4-10.2); Carbon Dioxide 29 mmol/L (22-29); Chloride 105 mmol/L (96-108); Estimated Glomerular Filt Rate > 60; Gamma Glutamyl Transpeptidase 40 U/L (11-51); Glucose Fasting 87 mg/dL (60-99); Potassium 3.7 mmol/L (3.3-5.1); Sodium 138 mmol/L (135-145); Total Protein 7.1 g/dL (6.5-8.0)
[2024-12-11 10:45] LABS: HBS Num1 0.56 mIU/mL (0-7.99); HBsAGNum1 0.42 S/CO (0.00-0.99); Hepatitis B Core Antibody Nonreactive (Nonreactive); Hepatitis B Surface Antigen Negative (Negative); ~HepC Num1 0.58 S/CO (0.00-0.79); ~Hepatitis B Surface Antibody NONREACTIVE (Nonreactive); ~Hepatitis C Antibody Nonreactive (Nonreactive)
[2024-12-16 14:28] LABS: Liver Kidney Microsomal Ab <=20.0 U (<=20.0)
== END 2024-12-11 06:05 | disposition home or self-care (01) ==
LOC: HO.HMGCLDS 06:04
PROVIDERS: PCP Internal Medicine; Visit Provider Internal Medicine
DX: R79.89 Other specified abnormal findings of blood chemistry (principal); Z00.00 Encounter for general adult medical examination without abnormal findings; E78.5 Hyperlipidemia, unspecified
CPT/HCPCS: 36415; 80053; 82977; 86376; 86704; 86706; 86803; 87340

== ENCOUNTER 2025-06-09 06:02 | Outpatient (REF) | payer MEDICARE, OTHER, SELFPAY ==
[2025-06-09 10:46] LABS: MANUAL DIFF FLAG NO
[2025-06-09 10:57] LABS: Hematocrit 41.1 % (42.0-52.0); Hemoglobin 12.5 g/dl (14.0-18.0); Imm Gran Abs Auto 0.02 X10*3/uL (0.00-0.03); Imm Gran Pct Auto 0.3 % (0.0-0.4); Lymphocytes Absolute Auto 1.6 X10*3/uL (1.2-4.9); Mean Corpuscular HGB Conc 30.4 g/dl (31.0-36.0); Mean Corpuscular Hemoglobin 26.4 pg (27.0-33.0); Mean Corpuscular Volume 86.7 fL (80.0-98.0); NRBC Abs Auto 0.000 X10*3/uL (0.0-0.012); NRBC Pct Auto 0.0 /100WBC (0.0-0.2); Platelet Count 293 X10*3/uL (160-400); Red Blood Count 4.74 X10*6/uL (4.60-5.80); White Blood Count 5.9 X10*3/uL (4.8-10.8)
[2025-06-09 11:21] LABS: Alanine Aminotransferase 35 U/L (0-40); Albumin Level 4.2 g/dL (3.5-5.0); Alkaline Phosphatase 86 U/L (39-117); Anion Gap 11 (12-20); Aspartate Amino Transferase 37 U/L (5-37); Blood Urea Nitrogen 23 mg/dL (9-16); Calcium 9.7 mg/dL (8.4-10.2); Carbon Dioxide 28 mmol/L (22-29); Chloride 105 mmol/L (96-108); Cholesterol 137 mg/dL (<200); Estimated Glomerular Filt Rate > 60; HDL Cholesterol 57 mg/dL (>40); Potassium 3.9 mmol/L (3.3-5.1); Sodium 140 mmol/L (135-145); Total Protein 7.0 g/dL (6.5-8.0); Triglycerides 63 mg/dL (<150)
== END 2025-06-09 06:03 | disposition home or self-care (01) ==
LOC: HO.HMGCLDS 06:02
PROVIDERS: PCP Internal Medicine; Visit Provider Internal Medicine
DX: Z00.00 Encounter for general adult medical examination without abnormal findings (principal); E78.5 Hyperlipidemia, unspecified; R79.89 Other specified abnormal findings of blood chemistry
CPT/HCPCS: 36415; 80053; 80061; 85025

== ENCOUNTER 2025-06-12 09:29 | Outpatient (AMB) | payer MEDICARE, OTHER, SELFPAY ==
--- NOTE | 2025-06-12 09:33 | AM.OFFVISMDC ---
Intake Vital Signs 06/12/25 09:34 Height 5 ft 10 in Weight 166 lb BMI 23.8 BP 126/70 Blood Pressure Location Rt brachial Position Sitting Respiration 16 Pulse 75 Pulse Source Pulse Oximeter Temp 98.0 F Temp Source Oral Pulse Oximetry (%) 95 Oxygen Delivery Method Room Air Intake Visit Reasons: SWV G0439 Allergies atorvastatin (Lipitor) Allergy (Unknown, Verified 06/12/25 09:38) dizzy ezetimibe (Zetia) Allergy (Unknown, Verified 06/12/25 09:38) does not remember lisinopril Allergy (Unknown, Verified 06/12/25 09:38) hyperkalemia Medication List - Last Reconciled 06/12/25 by Michelle Matias MD ascorbic acid (vitamin C) 500 mg PO DAILY aspirin (Adult Low Dose Aspirin) 81 mg PO DAILY atorvastatin 80 mg PO DAILY blood pressure test kit-medium Test blood pressure once a day famotidine 20 mg PO BEDTIME ferrous sulfate (Feosol) 325 mg PO DAILY vonoprazan (Voquezna) 20 mg PO BID HPI SWV G0439 HPI Details Initiated the conversation about Advanced Directives. Advanced Directives help? patients prepare for current and future decisions about their medical treatment? and place of care. Discussed with patient that it is a process where a patients? current condition and prognosis are reviewed, their wishes for information? regarding their illness are elicited, and likely medical dilemmas are presented? and options discussed. The form can be amended as needed, reviewed yearly and? make changes as needed IPPE/AWV ? year old presents? for her ? Annual? Wellness Visit, initial visit.? Medical / Social History Reviewed? Past Medical History ?Yes? . ? Rea? of Care / Care Team list updated ?Yes . ? Surgical/Hospitalization? History ?Yes . ? Current Medications? (including OTC and supplements) ?Yes . ? Family History ?Yes? . ? Tobacco? Control form ?Yes . ? AUDIT-C (Alcohol use) form? ?Yes . ? Illicit drug use in Social? History ?Yes . ? Current diagnosis of? depression? ?No ? Appropriate PHQ2/PHQ9? completed ?Yes . ? Data entered by ?Medical? Personnel Clerk and reviewed by provider ? Fall Risk ? Fall? History? Have you had any falls with? injury in the past year? ?No . ? Have you had two or more? falls in the past year? ?No . ? Fall Risk Assessment: ?No? falls in the past year . ? HRA filled out by? the patient, reviewed by Provider and scanned. ? IPPE/AWV ? Balance? Romberg? ?Yes . ? Tandem? walk ?Yes . ? Walk and? Turn ?Yes . ? Rise from? sit to stand ?Yes . ?Vision? Corrective? lens ?Yes ? Vision? screen ? Up-to-date, has an appointment [] for vision? screening and glaucoma screening ?Hearing? Whisper? test ?pass .? Initiated the conversation about Advanced Directives. Advanced Directives help? patients prepare for current and future decisions about their medical treatment? and place of care. Discussed with patient that it is a process where a patients? current condition and prognosis are reviewed, their wishes for information? regarding their illness are elicited, and likely medical dilemmas are presented? and options discussed. The form can be amended as needed, reviewed yearly and? make changes as needed Written? Plan?Completed. See Patient? Documents. [facility] Medical History (Updated 06/12/25 @ 10:30 by Michelle Matias MD) Dysplastic nevus Annual physical exam Iron deficiency BPH (benign prostatic hyperplasia) Sanders esophagus Hyperlipemia Surgical History No pertinent past surgical history Family History Father No problems noted. Mother No problems noted. Social History Housing: House Patient Tobacco Use Status: Never used Tobacco e-Cigarette/Vaping Use: Never Used Second Hand Smoke Exposure: Yes service: Yes Current occupational status: retired Current occupational exposures/hazards: No Cognitive needs: No Hearing needs: No Vision needs: Yes Questionnaire Medicare Wellness Checkup [age] What gender do you identify with?: male During the past 4 weeks, how much have you been bothered by emotional problems such as feeling anxious, depressed, irritable, sad or downhearted, and blue?: not at all During the past 4 weeks, has your physical & emotional health limited your social activities with family, friends, neighbors, or groups?: not at all During the past 4 weeks, how much bodily pain have you generally had?: very mild pain During the past 4 weeks, was someone available to help you if you needed & wanted help?: yes, as much as I wanted During the past 4 weeks, what was the hardest physical activity you could do for at least 2 minutes?: heavy Can you get to places out of walking distance without help? (For eg., can you travel alone on buses, taxis or drive your car?): Yes Can you go shopping for groceries or clothes without someone's help?: Yes Can you prepare your own meals?: Yes Can you do your housework without help?: Yes Because of any health problems, do you need the help of another person with your personal care needs such as eating, bathing, dressing or getting around the house?: No Can you handle your own money without help?: Yes During the past 4 weeks, how would you rate your health in general?: very good During the past 4 weeks how have things been going for you?: pretty well Are you having difficulties driving your car?: no Do you always fasten your seat belt when you are in a car?: yes, usually During past 4 weeks, have you been bothered by the following: never: Sexual problems?, Trouble eating well?, Teeth or denture problems?, Problems using the telephone? and Tiredness or fatigue? and seldom: Falling or dizzy when standing up Have you fallen 2 or more times in the past year?: No Are you afraid of falling?: No Are you a smoker?: no During the past 4 weeks, how many drinks of wine, beer, or other alcoholic beverages did you have?: 1 drink or less per week Do you exercise for about 20 minutes 3 or more times a week?: yes, most of the time Have you been given information to help with the following?: yes: Keeping track of your medications? and no: Hazards in your house that might hurt you? How often do you have trouble taking medicines the way you have been told to take them?: I always take medicine as prescribed How confident are you that you can control & manage most of your health problems?: very confident What is your race?: White Mini Mental State Exam (MMSE) Orientation What is the (year) (season) (date) (day) (month)?: year, season, date, day and month Where are we (state) (county) (town or city) (hospital) (floor)?: state, county, town or city, hospital/clinic and floor Registration Name of 3 unrelated objects clearly and slowly, then ask patient to repeat all 3 of them. (1st repeat determines score. Make sure they can repeat all three): object 1, object 2 and object 3 Attention & Calculation (CHOOSE ONE) Spell WORLD backwards (DLROW): 5 letters Recall Ask patient to repeat the 3 items from question #3.: object 1, object 2 and object 3 Language Show patient a wristwatch & ask what it is. Repeat for pencil.: watch and pencil Ask the patient to repeat the phrase 'No ifs, ands, or buts' after you.: correct Ask the patient to 'take a piece of paper with their right hand' 'fold paper in half' 'place paper on floor': take paper in right hand, fold paper in half and place paper on floor Print the sentence 'CLOSE YOUR EYES' on a piece. If patient actually closes eyes then score.: followed written direction Give patient a blank piece of paper & ask to write a sentence. Score if it contains a noun & verb.: sentence contains subject and verb Score Score: 29 PHQ-9 Over the last 2 weeks, how often have you been bothered by any of the following problems? 1. Little interest or pleasure in doing things: not at all 2. Feeling down, depressed, or hopeless: not at all 3. Trouble falling or staying asleep, or sleeping too much: not at all 4. Feeling tired or having little energy: not at all 5. Poor appetite or overeating: not at all 6. Feeling bad about yourself - or that you are a failure or have let yourself or your family down: not at all 7. Trouble concentrating on things, such as reading the newspaper or watching television: not at all 8. Moving or speaking so slowly that other people could have noticed. Or the opposite - being so fidgety or restless that you have been moving around a lot more than usual: not at all 9. Thoughts that you would be better off or of hurting yourself in some way: not at all Total score: 0 Depression Screening Interpretation: Negative Depression Screening Done: Yes 26978 - PHQ-9 Billing: Yes Source: Developed by Drs. Geremias Ramirez, Amber Quiles, Shreyas Ricci and colleagues, with an educational janny from [employer]. Review of Systems Const All systems reviewed & are unremarkable except as noted in HPI and below Eyes Reports no additional complaints ENT Reports no additional complaints Card Reports no additional complaints Resp Reports no additional complaints GI Reports no additional complaints Reports no additional complaints Physical Exam Vital Signs: Last Vital Signs Temp 98.0 F 06/12/25 09:34 Pulse 75 06/12/25 09:34 Resp 16 06/12/25 09:34 BP 126/70 06/12/25 09:34 Pulse Ox 95 06/12/25 09:34 Oxygen Delivery Method Room Air 06/12/25 09:34 BMI result Body Mass Index 23.8 Const General: no acute distress HEENT Head: Yes normal to inspection Ears: TM's normal bilaterally Eyes General: appearance normal, both eyes and all related structures Resp Effort & Inspection: normal respiratory effort Auscultation: clear to auscultation bilaterally Cardio Rhythm: regular rhythm Heart sounds: S1 normal heart sound present and S2 normal heart sound present GI Inspection: Yes normal to inspection Palpation (GI): Soft to palpation Percussion: Yes normal to percussion Auscultation: normal bowel sounds Extrem General: Yes no clubbing, cyanosis or edema Results AMB Hemoglobin A1c AMB Hemoglobin A1c 5.8 % Last Edit by SALENA Bryant on 06/12/25 10:23 Immunizations pneumoc 20-cornelio conj-dip cr(PF) 0.5 mL IM syringe Performing Provider: Michelle Matias MD Performing Location: [facility] Administered by: SALENA Bryant on 06/12/25 10:34 Dose Route Admin Location Dispensed Lot Number Expiration Date [facility] Geographic Information Systems Analyst 0.5 mL IM Right Deltoid 0.5 mL [id number] 03/31/26 0241-9816-12 [facility]/PFIZER Total Dispensed Waste 0.5 mL 0 % VIS Given Date VIS Provided VIS Publication Date 06/12/25 Single Vaccine 24 Eligibility Eligibility Date Funding Source Not [facility] Eligible 06/12/25 Private Results Reviewed Results Reviewed: Laboratory Last Values Hgb A1c (Clinic) 5.8 % (4.0-6.0) 06/12/25 10:15 Assessment & Plan Assessment & Plan (1) Sanders esophagus: Comment: EGD 06/2020 txd radio ablation f/u EGD in 6 mths, EGD 01/2022, , repeat in 07/[address] Avalos, EGD Q 3 months, last 04/2025 started on Voquenza and Pepcid . Code(s): K22.70 - Sanders's esophagus without dysplasia Plan: Continue current medication follow-up with GI (2) Hyperglycemia: Code(s): R73.9 - Hyperglycemia, unspecified Plan: A1c is 5.8, continue ADA diet regular exercise follow-up in 6 months with a fasting labs before (3) Hyperlipemia: Code(s): E78.5 - Hyperlipidemia, unspecified Plan: Continue statin (4) Annual physical exam: Code(s): Z00.00 - Encounter for general adult medical examination without abnormal findings Plan: Well-balanced diet regular physical activity discussed with the patient. Orders: Orders Pneumococcal 20 Immunization Today Z23 - Encounter for immunization AMB Hemoglobin A1c Today Z13.9 - Encounter for screening, unspecified Hemoglobin A1c 6 Months R73.9 - Hyperglycemia, unspecified Comprehensive Rose. Panel Fast 6 Months R73.9 - Hyperglycemia, unspecified Complete Blood Count Auto Diff 6 Months R73.9 - Hyperglycemia, unspecified Quality Reporting (2019) Depression/Bipolar (159/160/161/177) PHQ-9: Total score: 0 Coding Level of Care Code Medicare Subsequent (G0439) Diagnoses Sanders esophagus K22.70 Hyperglycemia R73.9 Hyperlipemia E78.5 Annual physical exam Z00.00 CPT Codes Advance Care Planning - Advance Care Planning discussion: On file, no changes ([id number]) Advance Care Planning - Time spent: 1-15 minutes, on File ([id number]) Additional Codes PHQ-9 - 39841 - PHQ-9 Billing: Yes ([id number]) Advance Care Planning Advance Care Planning discussion: On file, no changes Forms completed: Health Care Proxy Time spent: 1-15 minutes, on File
[2025-06-12 09:34] VITALS: BP 126/70; PULSE 75; RESP 16; TEMP 36.7; O2SAT 95; BMI 23.8
== END 2025-06-12 13:51 | disposition home or self-care (01) ==
LOC: HO.HMCC 09:30
PROVIDERS: PCP Internal Medicine; Visit Provider Internal Medicine
DX: K22.70 Barrett's esophagus without dysplasia (principal); R73.9 Hyperglycemia, unspecified; E78.5 Hyperlipidemia, unspecified; Z00.00 Encounter for general adult medical examination without abnormal findings; Z13.9 Encounter for screening, unspecified; Z23 Encounter for immunization

== ENCOUNTER → 2025-06-12 09:29 | Outpatient (BNVA) | payer MEDICARE, OTHER, SELFPAY | PROVIDERS: PCP Internal Medicine; Visit Provider Internal Medicine | DX: Z13.31 Encounter for screening for depression (principal); Z23 Encounter for immunization; Z13.1 Encounter for screening for diabetes mellitus | CPT/HCPCS: 83036; 90471; 90677; 96127 ==